=== PATIENT | female | born 1950 | race Caucasian/White ===

== ENCOUNTER 2019-01-08 06:00 | Outpatient (RCR) | payer MEDICARE, OTHER, MEDICAID, SELFPAY | END 2019-02-07 00:01 | LOC: GPT 06:00 | PROVIDERS: Family Provider Family Medicine; Visit Provider Family Medicine | DX: R29.6 Repeated falls (principal) | CPT/HCPCS: 97110; 97164 ==

== ENCOUNTER → 2019-03-14 12:35 | Outpatient (BNVA) | payer MEDICARE, MEDICAID, SELFPAY | PROVIDERS: Family Provider Family Medicine; PCP Family Medicine; Visit Provider Family Medicine | DX: E11.9 Type 2 diabetes mellitus without complications (principal) | CPT/HCPCS: 83036 ==

== ENCOUNTER → 2019-10-02 07:24 | Outpatient (BNVA) | payer MEDICARE, MEDICAID, SELFPAY | PROVIDERS: Family Provider Family Medicine; PCP Family Medicine; Visit Provider Nurse Practitioner Family | DX: R06.02 Shortness of breath (principal); R52 Pain, unspecified | CPT/HCPCS: 87635 ==

== ENCOUNTER → 2019-12-18 12:59 | Outpatient (BNVA) | payer MEDICARE, MEDICAID, SELFPAY | PROVIDERS: Family Provider Family Medicine; PCP Family Medicine; Visit Provider Nurse Practitioner Family | DX: Z11.59 Encounter for screening for other viral diseases (principal); R06.02 Shortness of breath | CPT/HCPCS: 87635 ==

== ENCOUNTER → 2020-01-09 11:17 | Outpatient (BNVA) | payer MEDICARE, MEDICAID, SELFPAY | PROVIDERS: Family Provider Family Medicine; PCP Family Medicine; Visit Provider Family Medicine | DX: M54.9 Dorsalgia, unspecified (principal); E11.9 Type 2 diabetes mellitus without complications; M47.816 Spondylosis without myelopathy or radiculopathy, lumbar region | CPT/HCPCS: 36416; 72070; 72100; 83036 ==

== ENCOUNTER 2020-01-17 06:00 | Outpatient (RCR) | payer MEDICARE, MEDICAID, SELFPAY | END 2020-02-08 23:59 | disposition home or self-care (01) | LOC: GPT 06:00 | PROVIDERS: Family Provider Family Medicine; PCP Family Medicine; Referring Provider Family Medicine; Visit Provider Family Medicine | DX: M54.9 Dorsalgia, unspecified (principal); M47.816 Spondylosis without myelopathy or radiculopathy, lumbar region | CPT/HCPCS: 97032; 97110; 97161; 97530 ==

== ENCOUNTER 2020-02-09 06:00 | Outpatient (RCR) | payer MEDICARE, MEDICAID, SELFPAY | END 2020-03-10 23:59 | disposition home or self-care (01) | LOC: GPT 06:00 | PROVIDERS: Family Provider Family Medicine; PCP Family Medicine; Referring Provider Family Medicine; Visit Provider Family Medicine | DX: M54.9 Dorsalgia, unspecified (principal); M47.816 Spondylosis without myelopathy or radiculopathy, lumbar region | CPT/HCPCS: 97032; 97110; 97116; 97164; 97530 ==

== ENCOUNTER 2020-03-11 06:00 | Outpatient (RCR) | payer MEDICARE, MEDICAID, SELFPAY | END 2020-04-07 23:59 | disposition home or self-care (01) | LOC: GPT 06:00 | PROVIDERS: Family Provider Family Medicine; PCP Family Medicine; Referring Provider Family Medicine; Visit Provider Family Medicine | DX: M54.9 Dorsalgia, unspecified (principal); M47.816 Spondylosis without myelopathy or radiculopathy, lumbar region | CPT/HCPCS: 97032; 97112; 97530 ==

== ENCOUNTER → 2020-05-01 11:35 | Outpatient (BNVA) | payer MEDICARE, MEDICAID, SELFPAY | PROVIDERS: Family Provider Family Medicine; PCP Family Medicine; Visit Provider Family Medicine | DX: E11.9 Type 2 diabetes mellitus without complications (principal); G47.33 Obstructive sleep apnea (adult) (pediatric); M47.816 Spondylosis without myelopathy or radiculopathy, lumbar region | CPT/HCPCS: 83036 ==

== ENCOUNTER → 2020-10-23 11:44 | Outpatient (BNVA) | payer MEDICARE, MEDICAID, SELFPAY | PROVIDERS: Family Provider Family Medicine; PCP Family Medicine; Visit Provider Nurse Practitioner Family | DX: R30.0 Dysuria (principal) | CPT/HCPCS: 81000 ==

== ENCOUNTER → 2020-10-31 13:29 | Outpatient (BNVA) | payer MEDICARE, MEDICAID, SELFPAY | PROVIDERS: Family Provider Family Medicine; PCP Family Medicine; Visit Provider Nurse Practitioner Family | DX: E11.9 Type 2 diabetes mellitus without complications (principal); E78.5 Hyperlipidemia, unspecified; I10 Essential (primary) hypertension | CPT/HCPCS: 83036 ==

== ENCOUNTER → 2020-11-04 11:33 | Outpatient (BNVA) | payer MEDICARE, MEDICAID, SELFPAY | PROVIDERS: Family Provider Family Medicine; PCP Family Medicine; Visit Provider Nurse Practitioner Family | DX: E11.9 Type 2 diabetes mellitus without complications (principal) | CPT/HCPCS: 80053; 80061; 84443 ==

== ENCOUNTER → 2021-01-14 15:01 | Outpatient (BNVA) | payer MEDICARE, MEDICAID, SELFPAY | PROVIDERS: Family Provider Family Medicine; PCP Family Medicine; Visit Provider Nurse Practitioner Family | DX: R30.0 Dysuria (principal) | CPT/HCPCS: 81000 ==

== ENCOUNTER 2021-03-12 10:29 | Emergency (ER) | payer MEDICARE, MEDICAID, SELFPAY ==
[2021-03-12 10:34] VITALS: BP 140/76; PULSE 71; RESP 16; TEMP 36.8; O2SAT 93; BMI 43.0
[2021-03-12 10:42] VITALS: BP 140/76; PULSE 71; RESP 16; TEMP 36.8; O2SAT 93
--- NOTE | 2021-03-12 10:56 | ECG_ITS ---
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 Measurements Intervals [place] Rate: 65 P: 53 VT: 174 QRS: 48 QRSD: 80 T: 42 QT: 420 QTc: 440 Interpretive Statements SINUS RHYTHM No previous ECG available for comparison Electronically Signed On 03-12-2021 18:27:31 ASSOCIATE DIRECTOR by Allan lGover M.D. [id number]
--- NOTE | 2021-03-12 10:56 | XR_ITS ---
WS: [id number] XR ribs LT mn 3V w CXR1V 08040 REASON FOR EXAM: frequent falls/L rib pain FINDINGS: No focal bone lesion or fracture of the left ribs. Underlying coarse reticular interstitial lung disease, chronic. No pleural abnormality. Prominent descending thoracic aorta which may be aneurysmally dilated. XR/XR ribs LT mn 3V w CXR1V 47670 IMPRESSION: No acute rib abnormality. Possible aneurysmal dilatation of the descending thoracic aorta.
--- NOTE | 2021-03-12 10:57 | ED_ITS ---
Documented by User: USAMA Serrano 03/12/21 16:13 HPI - Fall General: Chief Complaint: Fall Stated Complaint: FALL/ POSSIBLE RIB FX Time Seen by Provider: 03/12/21 10:40 Source: patient Mode of arrival: ambulatory Limitations: no limitations History of Present Illness: Patient is a 70-year-old female with a history of asthma, hyperlipidemia, obstructive sleep apnea diabetes, obesity, GERD, atrial fibrillation and HTN here for evaluation following a fall. Patient states she has fallen 6 times in the past 6 days. When asked what causes patient to fall she states most of the time she will trip over things such as her dog but then also tells me sometimes she gets dizzy and feels off balance. She states she fell one time from her shower bench because it was slippery. Patient states once she falls it is difficult for her to get up on her own. Patient is morbidly o bese and deconditioned. She states she fell a few days ago and was seen by PCP. They have referred her to PT for strengthening. Patient today states she feels mildly short of breath and states she is recovering from pneumonia (documentation states she was diagnosed with bronchitis on 02/19 and placed on levaquin). Patient states she is having some mild left rib pain from her fall today. MD complaint: fall Onset (ago): day(s) Fall witnessed: yes, by family Place fall occurred: home Loss of consciousness: None Prolonged down time: no Associated symptoms-after fall: Reports neck pain (chronic neck pain-at baseline); Denies abdominal pain, chest pain, confusion, headache(s), hematuria or lighthe adedness Review of Systems Const: Denies: fever(s), chills, body aches, fatigue or malaise Eyes: Denies: change in vision, blurry vision, photophobia, floaters or seeing flashes ENMT: Denies: throat pain, odynophagia, nasal discharge, nasal congestion or sinus pain Card: Reports: dyspnea on exertion; Denies: chest pain, palpitations, irregular heart rhythm, edema, swelling of feet/ankles, lightheadedness, syncope, pre-syncope, orthopnea or leg pain with exertion Resp: Reports: dyspnea, productive cough, chest congestion and other (states she is recovering from pneumonia); Denies: wheezing or hemoptysis GI: Denies: abdominal pain, nausea, vomiting or diarrhea : Denies: flank pain, dysuria or hematuria Musc: Reports: neck pain (chronic neck pain-at baseline) and back pain (reports chronic back pain-at baseline); Denies: extremity pain, extremity swelling, joint pain, joint swelling, joint redness or joint warmth Skin/Breast: Denies: rash Neuro: Reports: frequent falls; Denies: headache(s), numbness in extremities, weakness in extremities, sensory changes, dizziness, confusion, behavioral changes, Slurred speech present, difficulty communicating thoughts or seizure-like activity PFS ED PFSH: Medical History (Updated 03/12/21 @ 16:00 by USAMA Serrano) Afib Depression GERD (gastroesophageal reflux disease) Hyperlipidemia Hypertension, benign Hypothyroid Obesity Sleep apnea Social History Smoking and tobacco status: never smoked Quit status (tobacco): has quit using tobacco Year quit tobacco: 2001 Alcohol intake: never Physical Exam Const: COMMON NORMALS: no acute distress, patient oriented x3, no limitations and alert GENERAL APPEARANCE: cooperative NUTRITIONAL APPEARANCE: obese morbidly obese and other ORIENTATION/CONSCIOUSNESS: Yes awake, Yes oriented to person, Yes oriented to place and Yes oriented to time HENMT: COMMON NORMALS: normocephalic and atraumatic HEAD & SCALP: normocephalic and atraumatic Neck/C-Spine: COMMON NORMALS: full ROM CERVICAL SPINE: No pain with cervical ROM, No Cervical spine tenderness and No step off deformity Chest: COMMONS NORMALS: normal inspection of the chest and normal palpation of entire chest wall Resp: COMMON NORMALS: normal respiratory effort AUSCULTATION: rhonchi left lower Cardio: COMMON NORMALS: regular rate and regular rhythm RATE: regular rate RHYTHM: regular rhythm GI: COMMON NORMALS: Normal to inspection, nondistended, normoactive bowel sounds present, Soft to palpation and non-tender INSPECTION: Yes central obesity PALPATION: Yes Soft to palpation Back/Pelvis: COMMON NORMALS: thoracic and lumbar spine normal to inspection, no thoracic nor lumbar tenderness and thoraco-lumbar ROM normal BACK IMAGE (FEMALE): 1. mild ecchymosis from previous fall per patient Extremity: COMMON NORMALS: normal to inspection and full ROM GENERAL: Yes normal exam except as noted Neuro: PARKER COMA SCALE: document GCS findings Parker coma scale eye opening: Spontaneous [place] coma scale verbal response: Orientated [place] coma scale motor response: Obey commands Parker coma scale total score: 15 COMMON NORMALS: patient oriented x3, CN's II-XII intact bilaterally, moves all extremities, no focal motor deficits and no sensory deficits noted SENSORIUM/ORIENTATION: Yes alert, Yes oriented to person, Yes oriented to place and Yes oriented to time Skin: NARRATIVE SKIN EXAM: area of ecchymosis to R lower back; otherwise normal skin exam Course Vital Signs: Vital signs: Vital Signs Temperature 98.2 F 03/12/21 10:42 Pulse Rate 71 03/12/21 16:14 Respiratory Rate 18 03/12/21 16:14 Blood Pressure 145/88 03/12/21 16:14 Pulse Oximetry 94 03/12/21 16:14 MDM - Fall Medical Decision Making Patient is a 70-year-old female here for complaints of falls over the past several days. Patient at first tells me that most of her falls are secondary to tripping over things such as her dog. She had one fall where she slipped off of her bench in her shower. She does at some point tell me she feels like she gets a little dizzy and off balance at times therefore work-up initiated. She had some mild left rib discomfort on her history although she was not overly tender here on exam. Her CXR showed a possible thoracic aortic aneurysm therefore went ahead and proceeded with CT imaging which was essentially negative. She did have a possible acute to subacute T12 compression fracture-she is not tender here on exam. Remainder of CT is negative. Vital signs are stable. Upon initial arrival she did require a small amount of oxygen secondary to morphine given by EMS but was tapered off this and did well. Patient's labs overall are unremarkable. She does have a mildly elevated baseline troponin with a negative delta. Her EKG showed no ischemic changes. She does not have any complaint of chest pain. UA is slightly suspicious for UTI. We will go ahead and place her on Keflex for this. Recommend close follow-up with her primary care. I think a lot of her falls are secondary to body habitus and generalized deconditioning. She does states she has been referred to PT for strengthening/balance which I think will help. Return to ED precautions given. Lab Data I reviewed the patient's lab results. : 03/12/21 13:23 02/02/22 13:23 Radiology Impressions Ribs X-Ray 03/12/21 10:56 IMPRESSION: No acute rib abnormality. Possible aneurysmal dilatation of the descending thoracic aorta. Chest/Abdomen/Pelvis CT 03/12/21 12:20 IMPRESSION: 1. Normal caliber thoracic aorta. No thoracic aortic aneurysm. Mild vascular calcification. 2. Both lungs are well aerated. No acute pulmonary infiltrates. 3. Mild compression superior endplate T12 may be acute to subacute. No retropulsion. Recommend correlation for thoracolumbar pain. 4. Incidental left renal cysts. 5. No other acute traumatic findings in the abdomen or pelvis. Laboratory Results WBC 8.1 10^3/uL (4.0-10.0) 03/12/21 13:23 RBC 3.58 10^6/uL (4.1-5.3) L 03/12/21 13:23 Hgb 10.5 g/dL (11.5-15.3) L 03/12/21 13:23 Hct 34.6 % (37.0-47.0) L 03/12/21 13:23 MCV 96.6 fl (81-99) 03/12/21 13:23 MCH 29.3 pg (28.0-34.0) 03/12/21 13:23 MCHC 30.3 g/dL (30.0-36.0) 03/12/21 13:23 RDW 14.7 % (12.1-15.1) 03/12/21 13:23 Plt Count 223 10^3/cmm (130-400) 03/12/21 13:23 MPV 10.1 fL (7.4-10.4) 03/12/21 13:23 Neut % (Auto) 72.9 % 03/12/21 13:23 Lymph % (Auto) 14.3 % 03/12/21 13:23 [place] % (Auto) 6.0 % 03/12/21 13:23 Eos % (Auto) 6.2 % 03/12/21 13:23 Baso % (Auto) 0.4 % 03/12/21 13:23 Neut # (Auto) 5.92 10^3/uL (1.8-7.7) 03/12/21 13:23 Lymph # (Auto) 1.2 10^3/uL (0.8-4.8) 03/12/21 13:23 [place] # (Auto) 0.5 10^3/uL (0.2-0.9) 03/12/21 13:23 Eos # (Auto) 0.5 10^3/uL (0.0-0.8) 03/12/21 13:23 Baso # (Auto) 0.0 10^3/uL (0.0-0.1) 03/12/21 13:23 Nucleated RBC % (auto) 0 % 03/12/21 13:23 Nucleated RBCs # 0.0 /100WBC 03/12/21 13:23 Sodium 140 mmol/L (136-145) 03/12/21 13:23 Potassium 4.5 mmol/L (3.5-5.1) 03/12/21 13:23 Chloride 105 mmol/L (98-107) 03/12/21 13:23 Carbon Dioxide 25 mmol/L (22-29) 03/12/21 13:23 Anion Gap 14.5 (5-19) 03/12/21 13:23 BUN 17 mg/dL (8-23) 03/12/21 13:23 Creatinine 0.6 mg/dL (0.5-0.9) 03/12/21 13:23 GFR Calculation Not Reportable 03/12/21 13:23 Glucose 129 mg/dL (65-115) H 03/12/21 13:23 Calculated Osmolality 293 mOsm/kg (285-295) 03/12/21 13:23 Calcium 8.9 mg/dL (8.5-10.5) 03/12/21 13:23 Total Bilirubin 0.2 mg/dL (0.15-1.2) 03/12/21 13:23 AST 11 U/L (0-32) 03/12/21 13:23 ALT 10 U/L (0-33) 03/12/21 13:23 Alkaline Phosphatase 70 IU/L (35-105) 03/12/21 13:23 Creatine Kinase 39 U/L (26-192) 03/12/21 13:23 Troponin T Baseline 46 ng/L (0-10) H 03/12/21 13:23 Troponin T 120 Minute 49.46 ng/L (0-10) H 03/12/21 15:07 Delta Troponin T 3.46 ABS# (0-10) 03/12/21 15:07 Total Protein 6.7 g/dL (6.6-8.7) 03/12/21 13:23 Albumin 3.4 g/dL (3.5-5.2) L 03/12/21 13:23 Globulin 3.3 g/dL (1.3-4.6) 03/12/21 13:23 Urine Color Yellow (Yellow) 03/12/21 11:56 Urine Appearance Clear (CLEAR) 03/12/21 11:56 Urine pH 5 (5-7) 03/12/21 11:56 Ur Specific [place] 1.020 (1.005-1.030) 03/12/21 11:56 Urine Protein Neg (Negative) 03/12/21 11:56 Urine Glucose (UA) Norm (Normal) 03/12/21 11:56 Urine Ketones Negative (Negative) 03/12/21 11:56 Urine Blood 2+ (Negative) H 03/12/21 11:56 Urine Nitrate Negative (Negative) 03/12/21 11:56 Urine Bilirubin Neg (Negative) 03/12/21 11:56 Urine Urobilinogen Neg mg/dL (Negative) 03/12/21 11:56 Ur Leukocyte Esterase 1+ (Negative) H 03/12/21 11:56 Urine RBC 0-4 /hpf (0-2) H 03/12/21 11:56 Urine WBC 0-4 /hpf (0-5) H 03/12/21 11:56 Ur Squamous Epith Cells 5-10 /hpf (0-5) H 03/12/21 11:56 Ur Transition Epith Cell 0-4 /hpf 03/12/21 11:56 Amorphous Sediment 2+ /hpf 03/12/21 11:56 Urine Bacteria 2+ /hpf (NONE) H 03/12/21 11:56 Urine Mucus 1+ /hpf 03/12/21 11:56 Discharge Plan Discharge Patient Disposition: Home Clinical Impression: Frequent falls UTI (urinary tract infection) Qualifiers: Urinary tract infection type: acute cystitis Hematuria presence: without hematuria Qualified Code(s): N30.00 - Acute cystitis without hematuria Condition: Stable Prescriptions: New cephalexin 500 mg capsule 500 mg PO Q6H 7 Days Qty: 28 0RF No Action albuterol sulfate [Ventolin HFA] 90 mcg/actuation HFA aerosol inhaler 2 puff INHALATION Q6H PRN0RF fluticasone propionate [Flonase Allergy Relief] 50 mcg/actuation spray,suspension 2 spray INTRANASAL DAILY 0RF omega-3 fatty acids 1,000 mg capsule 1,000 mg PO DAILY 0RF naproxen sodium [Aleve] 220 mg capsule 220 mg PO BID PRN0RF All Day Allergy (cetirizine) 10 mg capsule 10 mg PO DAILY 0RF nystatin-triamcinolone 100,000-0.1 unit/gram-% ointment 1 applic topical TID Qty: 60 1RF Symbicort 160-4.5 mcg/actuation HFA aerosol inhaler 2 puff INHALATION BID Qty: 10.2 4RF nystatin 100,000 unit/gram powder 1 applic topical QID Qty: 60 4RF fluconazole 150 mg tablet 150 mg PO Q3D Qty: 2 0RF Basaglar KwikPen U-100 Insulin 100 unit/mL (3 mL) insulin pen 20 unit SUBCUT .AT BEDTIME 30 Days Qty: 18 5RF pioglitazone [Actos] 45 mg tablet 45 mg PO DAILY Qty: 90 1RF losartan 25 mg tablet 25 mg PO DAILY Qty: 90 3RF escitalopram oxalate 20 mg tablet 20 mg PO DAILY Qty: 90 3RF atorvastatin 20 mg tablet 20 mg PO DAILY Qty: 90 1RF metoprolol tartrate 50 mg tablet 50 mg PO BID Qty: 180 3RF hydralazine 10 mg tablet See Rx Instructions .ROUTE .COMPLEX Qty: 180 3RF Dose Instruction: TAKE ONE TABLET BY MOUTH TWICE A DAY Rx Instructions: TAKE ONE TABLET BY MOUTH TWICE A DAY pantoprazole 40 mg tablet,delayed release (DR/EC) See Rx Instructions .ROUTE .COMPLEX Qty: 180 3RF Dose Instruction: TAKE ONE TABLET BY MOUTH TWICE A DAY Rx Instructions: TAKE ONE TABLET BY MOUTH TWICE A DAY (DME) pen needle, diabetic [1st Tier Unifine Pentips] 32 gauge x 5/32 needle See Rx Instructions .ROUTE .MEDSUPPLY Qty: 300 3RF Rx Instructions: As directed three times a day Discharge Orders: Discharge ED (Routine); Ordered 03/12/21 Ordered By: Patria Castañeda Referrals: Nacho Stovall DO [Primary Care Provider] - Coding Level of Care Code ED 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 mild ecchymosis from previous fall per patient Neuro: PARKER COMA SCALE: document GCS findings [place] coma scale total score: 15 Course Vital Signs: Vital signs: Vital Signs Temperature 98.2 F 03/12/21 10:42 Pulse Rate 71 03/12/21 16:14 Respiratory Rate 18 03/12/21 16:14 Blood Pressure 145/88 03/12/21 16:14 Pulse Oximetry 94 03/12/21 16:14 MDM - Fall Medical Decision Making Patient is a 70-year-old female here for complaints of falls over the past several days. Patient at first tells me that most of her falls are secondary to tripping over things such as her dog. She had one fall where she slipped off of her bench in her shower. She does at some point tell me she feels like she gets a little dizzy and off balance at times therefore work-up initiated. She had some mild left rib discomfort on her history although she was not overly tender here on exam. Her CXR showed a possible thoracic aortic aneurysm therefore went ahead and proceeded with CT imaging which was essentially negative. She did have a possible acute to subacute T12 compression fracture-she is not tender here on exam. Remainder of CT is negative. Vital signs are stable. Upon initial arrival she did require a small amount of oxygen secondary to morphine given by EMS but was tapered off this and did well. Patient's labs overall are unremarkable. She does have a mildly elevated baseline troponin with a negative delta. Her EKG showed no ischemic changes. She does not have any complaint of chest pain. UA is slightly suspicious for UTI. We will go ahead and place her on Keflex for this. Recommend close follow-up with her primary care. I think a lot of her falls are secondary to body habitus and generalized deconditioning. She does states she has been referred to PT for strengthening/balance which I think will help. Return to ED precautions given. I have reviewed this documentation by USAMA Serrano MD Emergency Medicine Lab Data : 03/12/21 13:23 03/12/21 13:23 Radiology Impressions Ribs X-Ray 03/12/21 10:56 IMPRESSION: No acute rib abnormality. Possible aneurysmal dilatation of the descending thoracic aorta. Chest/Abdomen/Pelvis CT 03/12/21 12:20
--- NOTE | 2021-03-12 12:20 | CT_ITS ---
WS: [id number] CT CHEST, ABDOMEN, AND PELVIS TECHNIQUE: Contrast-enhanced CT of the chest, abdomen, and pelvis with coronal and sagittal reformatt ed images. CLINICAL INFORMATION: abn CXR; thoracic aneurysm?; fall; R posterior ecchymosis COMPARISON: None. DLP: 1958.[address] scans at [facility] use at least one of these dose optimization techniques: automated e xposure control; mA and/or kV adjustment per patient size (includes targeted exams where dose is matc hed to clinical indication); or iterative reconstruction. CT CHEST: Normal caliber thoracic aorta. Aortic calcification. Normal caliber descending thoracic aorta. Proxim al main pulmonary arteries are normal. Mild aortic calcification. Coronary calcification. No mediasti nal or hilar lymphadenopathy. No axillary lymphadenopathy. Slight atelectasis in the lung bases. Lung s are well aerated. No acute pulmonary infiltrates. Mild compression superior endplate T12 age-indete rminate may be acute to subacute. Recommend correlation for low back pain. No retropulsion. CT ABDOMEN AND PELVIS: Normal liver. Normal portal vein and splenic vein. Gallbladder appears normal. Normal portal vein and splenic vein. Mild fatty atrophy of the pancreas. Normal spleen. Adrenal glands are normal. Normal r enal parenchymal enhancement. No hydronephrosis. Left renal cysts. Normal caliber abdominal aorta. Ao rtic calcification. No periaortic lymphadenopathy. Urine distended bladder. Normal sigmoid colon. Small Fat-containing umbilical hernia. CT/CT chest abd pel w con* IMPRESSION: 1. Normal caliber thoracic aorta. No thoracic aortic aneurysm. Mild vascular c alcification. 2. Both lungs are well aerated. No acute pulmonary infiltrates. 3. Mild compression superior endplate T12 may be acute to subacute. No retropu lsion. Recommend correlation for thoracolumbar pain. 4. Incidental left renal cysts. 5. No other acute traumatic findings in the abdomen or pelvis.
[2021-03-12 12:27] LABS: Add Urine Microscopic? YES; Bilirubin Urine Neg (Negative); Blood Urine 2+ (Negative); Glucose Urine UA Norm (Normal); Ketones Urine Negative (Negative); Leukocyte Esterase Urine 1+ (Negative); Nitrate Urine Negative (Negative); Protein Urine Neg (Negative); Urine Appearance Clear (CLEAR); Urine Color Yellow (Yellow); Urobilinogen Urine Neg (Negative); pH Urine 5 (5-7)
[2021-03-12 12:29] LABS: RBC Urine 0-4 /hpf (0-2); WBC Urine 0-4 /hpf (0-5)
[2021-03-12 12:30] LABS: Add Urine Culture? Yes; Amorphous Sediment Urine 2+ /hpf; Bacteria Urine 2+ /hpf; Mucus Urine 1+ /hpf; Transitional Epi Cells Urine 0-4 /hpf
[2021-03-12 13:14] VITALS: BP 135/77; PULSE 73; RESP 16; O2SAT 98
[2021-03-12 13:28] LABS: Basophils % 0.4 %; Eosinophils # 0.5 10^3/uL (0.0-0.8); Eosinophils % 6.2 %; Hematocrit 34.6 % (37.0-47.0); Hemoglobin 10.5 g/dL (11.5-15.3); Lymphocytes # 1.2 10^3/uL (0.8-4.8); Lymphocytes % 14.3 %; Mean Corpuscular HGB Conc 30.3 g/dL (30.0-36.0); Mean Corpuscular Hemoglobin 29.3 pg (28.0-34.0); Mean Corpuscular Volume 96.6 fl (81-99); Mean Platelet Volume 10.1 fL (7.4-10.4); Monocytes # 0.5 10^3/uL (0.2-0.9); Neutrophils # 5.92 10^3/uL (1.8-7.7); Neutrophils % 72.9 %; Nucleated Red Blood Cells % 0 %; Platelet Count 223 10^3/cmm (130-400); Red Blood Count 3.58 10^6/uL (4.1-5.3); Red Cell Distribution Width 14.7 % (12.1-15.1); White Blood Count 8.1 10^3/uL (4.0-10.0)
[2021-03-12 13:51] LABS: Troponin(5th) Baseline 46 ng/L (0-10)
[2021-03-12 13:53] LABS: Alanine Aminotransferase 10 U/L (0-33); Albumin Level 3.4 g/dL (3.5-5.2); Alkaline Phosphatase 70 IU/L (35-105); Anion Gap 14.5 (5-19); Aspartate Amino Transferase 11 U/L (0-32); Blood Urea Nitrogen 17 mg/dL (8-23); Calcium 8.9 mg/dL (8.5-10.5); Carbon Dioxide 25 mmol/L (22-29); Chloride 105 mmol/L (98-107); Creatine Phosphokinase 39 U/L (26-192); Globulin 3.3 g/dL (1.3-4.6); Glucose 129 mg/dL (65-115); Osmolality Calculated 293 mOsm/kg (285-295); Potassium 4.5 mmol/L (3.5-5.1); Sodium 140 mmol/L (136-145); Total Bilirubin 0.2 mg/dL (0.15-1.2); Total Protein 6.7 g/dL (6.6-8.7)
[2021-03-12] MEDS: iohexol 300 mg/mL 100 mL Btl IV (14:23)
[2021-03-12 15:15] VITALS: BP 144/81; PULSE 67; RESP 20; O2SAT 93
[2021-03-12 15:45] LABS: Troponin 5 2HR 49.46 ng/L (0-10)
[2021-03-12 15:46] LABS: Troponin 5 2HR Delta 3.46 ABS# (0-10)
[2021-03-12 16:14] VITALS: BP 145/88; PULSE 71; RESP 18; O2SAT 94
== END 2021-03-12 16:12 | disposition home or self-care (01) ==
PROVIDERS: Emergency Provider Physician Assistant; PCP Family Medicine
DX: R29.6 Repeated falls (principal); N30.00 Acute cystitis without hematuria; E78.5 Hyperlipidemia, unspecified; I10 Essential (primary) hypertension; Z87.891 Personal history of nicotine dependence
CPT/HCPCS: 36415; 71101; 71260; 74177; 80053; 81001; 82550; 84484; 85025; 87077; 87086; 87186; 93005; 99284; Q9967

== ENCOUNTER 2021-04-07 16:08 | Outpatient (RCR) | payer MEDICARE, MEDICAID, SELFPAY | END 2021-04-07 23:59 | disposition home or self-care (01) | LOC: GPT 16:08 | PROVIDERS: PCP Family Medicine; Referring Provider Nurse Practitioner Family; Visit Provider Nurse Practitioner Family | DX: M54.2 Cervicalgia (principal); G89.29 Other chronic pain; M25.511 Pain in right shoulder; M25.512 Pain in left shoulder; M25.619 Stiffness of unspecified shoulder, not elsewhere classified | CPT/HCPCS: 97110; 97162 ==

== ENCOUNTER 2021-04-08 06:00 | Outpatient (RCR) | payer MEDICARE, MEDICAID, SELFPAY | END 2021-04-29 13:08 | disposition home or self-care (01) | LOC: GPT 06:00 | PROVIDERS: PCP Family Medicine; Referring Provider Nurse Practitioner Family; Visit Provider Nurse Practitioner Family | DX: G89.29 Other chronic pain (principal); M54.2 Cervicalgia; M25.511 Pain in right shoulder; M25.512 Pain in left shoulder | CPT/HCPCS: 97110; 97140; 97530 ==

== ENCOUNTER → 2021-04-21 14:25 | Outpatient (BNVA) | payer MEDICARE, MEDICAID, SELFPAY | PROVIDERS: PCP Family Medicine; Visit Provider Nurse Practitioner Family | DX: E11.9 Type 2 diabetes mellitus without complications (principal); E78.5 Hyperlipidemia, unspecified; Z68.41 Body mass index [BMI] 40.0-44.9, adult | CPT/HCPCS: 80053; 80061; 83036 ==

== ENCOUNTER → 2021-06-02 13:15 | Outpatient (BNVA) | payer MEDICARE, MEDICAID, SELFPAY | PROVIDERS: PCP Family Medicine; Visit Provider Internal Medicine Cardiovascular Disease | DX: R55 Syncope and collapse (principal); W19.XXXA Unspecified fall, initial encounter; E78.5 Hyperlipidemia, unspecified; M54.2 Cervicalgia; G89.29 Other chronic pain; E11.9 Type 2 diabetes mellitus without complications; R00.1 Bradycardia, unspecified; R00.0 Tachycardia, unspecified; Z79.4 Long term (current) use of insulin | CPT/HCPCS: 93270; 99213 ==

== ENCOUNTER → 2021-06-13 14:29 | Outpatient (BNVA) | payer MEDICARE, MEDICAID, SELFPAY | PROVIDERS: PCP Family Medicine; Visit Provider Nurse Practitioner Family | DX: N39.0 Urinary tract infection, site not specified (principal); R31.9 Hematuria, unspecified | CPT/HCPCS: 81003; 87077; 87086; 87184 ==

== ENCOUNTER → 2021-07-15 11:10 | Outpatient (BNVA) | payer MEDICARE, MEDICAID, SELFPAY | PROVIDERS: PCP Family Medicine; Visit Provider Internal Medicine Cardiovascular Disease | DX: I10 Essential (primary) hypertension (principal); W19.XXXA Unspecified fall, initial encounter; E78.5 Hyperlipidemia, unspecified; E66.9 Obesity, unspecified; Z68.41 Body mass index [BMI] 40.0-44.9, adult; E11.9 Type 2 diabetes mellitus without complications; K21.9 Gastro-esophageal reflux disease without esophagitis; M54.2 Cervicalgia; G89.29 Other chronic pain; Z87.891 Personal history of nicotine dependence; Z79.4 Long term (current) use of insulin | CPT/HCPCS: 99214 ==

== ENCOUNTER → 2021-07-23 11:52 | Outpatient (BNVA) | payer MEDICARE, MEDICAID, SELFPAY | PROVIDERS: PCP Family Medicine; Visit Provider Nurse Practitioner Family | DX: E11.9 Type 2 diabetes mellitus without complications (principal); R30.0 Dysuria | CPT/HCPCS: 81000; 83036 ==

== ENCOUNTER → 2021-10-08 13:13 | Outpatient (BNVA) | payer MEDICARE, MEDICAID, SELFPAY | PROVIDERS: PCP Family Medicine; Visit Provider Family Medicine | DX: R30.0 Dysuria (principal); N39.0 Urinary tract infection, site not specified; R31.9 Hematuria, unspecified | CPT/HCPCS: 81000; 81003; 87077; 87086; 87184 ==

== ENCOUNTER → 2021-12-30 10:59 | Outpatient (BNVA) | payer MEDICARE, MEDICAID, SELFPAY | PROVIDERS: PCP Family Medicine; Visit Provider Nurse Practitioner Family | DX: R30.0 Dysuria (principal) | CPT/HCPCS: 81000 ==

== ENCOUNTER → 2022-01-27 15:25 | Outpatient (BNVA) | payer MEDICARE, MEDICAID, SELFPAY | PROVIDERS: PCP Family Medicine; Visit Provider Nurse Practitioner Family | DX: R30.9 Painful micturition, unspecified (principal) | CPT/HCPCS: 81000 ==

== ENCOUNTER 2022-02-17 12:07 | Observation (INO) | payer MEDICARE, MEDICAID, SELFPAY ==
[2022-02-17] VITALS (7 sets, daily range): BP systolic 130–178; BP diastolic 62–96; PULSE 57–66; RESP 14–17; TEMP 36.4–36.7; O2SAT 93–94; BMI 41.0
--- NOTE | 2022-02-17 12:32 | CT_ITS ---
WS: [id number] CT HEAD TECHNIQUE: Noncontrast CT of the head obtained from the skullbase to the vertex. CLINICAL INFORMATION: Symptoms of acute stroke COMPARISON: None. DLP: [address] scans [address] [facility] use at least one of these dose optimization techniques: automated e xposure control; mA and/or kV adjustment per patient size (includes targeted exams where dose is matc hed to clinical indication); or iterative reconstruction. FINDINGS: No evidence of intracranial hemorrhage or mass effect. Ventricular system and basal cisterns are golden nt. Moderate small vessel changes with moderate parenchymal volume loss. Intracranial vascular calcif ication. A few tiny chronic lacunar infarcts in the basal ganglia. No extra-axial fluid collections. No evidence of mass or mass effect. Paranasal sinuses and mastoid air cells are well aerated. Trace fluid in the sphenoid sinus. .Normal visualized soft tissues. CT/CT head thrombolytic 48623 IMPRESSION: 1. No evidence of intracranial hemorrhage or mass effect. 2. Moderate small vessel changes. Moderate parenchymal volume loss. 3. Trace fluid in the sphenoid sinus. 4. No acute intracranial findings. Notified Rafael Vásquez DO at 02/17/2022 1:10PM.
--- NOTE | 2022-02-17 12:33 | ED_ITS ---
HPI - Neuro Symptoms/Deficit General: Chief Complaint: Neuro Symptoms/Deficit Stated Complaint: Slurred Speech Time Seen by Provider: 02/17/22 12:15 Source: patient Mode of arrival: ambulatory Limitations: no limitations History of Present Illness: I think I may have had a stroke . The patient states that she noted Wednesday morning when she awoke she seemed to be speaking a little differently than normal. She states she could not make the words come out as clearly as they normally do. She states that she was normal Wednesday night before she went to bed. She states that no one really commented on her speech pattern at home. She lives with her but states that he had company over and he was not really paying attention to her. She states that when she called her primary care office this morning they thought that her speech was somewhat abnormal and directed her to the emergency department. He states she is not any focal weakness, numbness, falls, fevers or other symptoms. She is states that she does not have sore throat, difficulty swallowing etc. She states that she has been taking all her medications as prescribed. She does have a history of hypertension as well as diabetes. On Anticoagulants: No Associated symptoms: Deny chest pain, headache(s), nausea or vomiting Review of Systems Const: Denies: fever(s) or chills Eyes: Denies: change in vision ENMT: Denies: throat pain, odynophagia, hoarseness, nasal discharge or nasal congestion Card: Denies: chest pain or palpitations Resp: Denies: dyspnea, productive cough or non-productive cough GI: Denies: abdominal pain, nausea or vomiting : Denies: flank pain, difficulty voiding, dysuria or urinary frequency Musc: Denies: neck pain, back pain, extremity pain or extremity swelling Skin/Breast: Denies: rash Neuro: Reports: Slurred speech present; Denies: headache(s), numbness in extremities, weakness in extremities, sensory changes, lack of coordination, difficulty walking or seizure-like activity Psych: Denies: anxiety Endo: Denies: polyuria or polydipsia Royce/Lymph: Denies: easy bruising PFS ED PFSH: Medical History Afib Blackout spell Depression GERD (gastroesophageal reflux disease) Hyperlipidemia Hypertension, benign Hypothyroid Obesity Sleep apnea Social History Smoking and tobacco status: never smoked Quit status (tobacco): has quit using tobacco Year quit tobacco: 2001 Alcohol intake: never NIH stroke score NIHSS: Level Of Consciousness - 1a: 0 Level Of Consciousness Questions - 1b: Both Correct Level Of Consciousness Commands - 1c: Both Correct Best Gaze - 2: Normal Visual Barr - 3: No Visual Loss Facial Palsy - 4: Normal Motor Arm Right - 5: No Drift Motor Arm Left - 5: No Drift Motor Leg Right - 6: No Drift Motor Leg Left - 6: No Drift Limb Ataxia - 7: Absent Sensory - 8: Normal Best Language - 9: No Aphasia Dysarthia - 10: Mild/Moderate Dysarthia Extinction And Inattention - 11: 0 Score: Total Score: 1 Physical Exam Narrative: EXAM NARRATIVE: The patient makes good eye contact. Speech is goal-directed she does display some mild dysarthria but she is easily understood. Const: COMMON NORMALS: no acute distress and patient oriented x3 GENERAL APPEARANCE: cooperative and comfortable NUTRITIONAL APPEARANCE: overweight ORIENTATION/CONSCIOUSNESS: Yes awake HENMT: COMMON NORMALS: normocephalic, atraumatic, Normal nasal mucous membranes and turbinates present and moist oral mucous membranes HEAD & SCALP: normocephalic and atraumatic FACE & SINUS: normal facial exam and face symmetric NOSE: Normal nasal mucous membranes and turbinates present TEETH & GINGIVA: Yes edentulous Eye: COMMON NORMALS: Equal, round and reactive pupils present, conjunctivae normal and normal visual barr by confrontation CONJUNCTIVA: Yes conjunctivae normal PUPIL: Yes Equal, round and reactive pupils present Neck/C-Spine: COMMON NORMALS: full ROM, no JVD and No carotid bruits Chest: COMMONS NORMALS: normal inspection of the chest Resp: COMMON NORMALS: normal respiratory effort, No use of accessory muscles and clear to auscultation bilaterally AUSCULTATION: clear to auscultation bilaterally Cardio: COMMON NORMALS: no JVD, regular rate, regular rhythm, No murmurs present (Cardio) and Peripheral pulses 2+ throughout RATE: regular rate RHYTHM: regular rhythm PERIPHERAL PULSES: Peripheral pulses 2+ throughout GI: COMMON NORMALS: Normal to inspection, nondistended, normoactive bowel sounds present, Soft to palpation and non-tender PALPATION: Yes Soft to palpation : COMMON NORMALS: Yes no CVA tenderness BLADDER/KIDNEY EXAM: Yes no CVA tenderness Back/Pelvis: COMMON NORMALS: no CVA tenderness, thoraco-lumbar ROM normal and straight leg raise negative bilaterally Extremity: COMMON NORMALS: normal to inspection, full ROM, capillary refill normal, no calf tenderness and no pedal edema Neuro: COMMON NORMALS: patient oriented x3, moves all extremities, no focal motor deficits and no sensory deficits noted CRANIAL NERVES: Yes CN normal except as noted COORDINATION/BALANCE: [id number] test normal and pswb-np-wwbf test normal SPEECH: speech normal MOTOR EXAM: 5/5 motor strength present throughout COORDINATION: [id number]-tx-[id number] test normal and wind-et-wjgb test normal Psych: COMMON NORMALS: mental status grossly normal and cooperative Skin: COMMON NORMALS: no rashes or lesions noted and turgor normal GENERAL SKIN EXAM: no rashes or lesions noted and turgor normal Course Reevaluation(s): Reevaluation #1: The patient is remained stable throughout her emergency department stay with no new or focal findings. Vital signs remained stable and her imaging studies and other ancillary studies are normal. She has not displayed any evidence of atrial fibrillation throughout her emergency department stay. Time: 17:34 Consultations: Consultation #1: Discussed with hospitalist regarding observation to complete stroke evaluation work-up. She agreed to place in observation so that we can get additional studies prior to discharge. Time: 17:35 Vital Signs: Vital signs: Vital Signs Temperature 98.1 F 02/17/22 12:15 Pulse Rate 58 L 02/17/22 15:11 Respiratory Rate 14 02/17/22 15:11 Blood Pressure 174/96 02/17/22 15:11 Pulse Oximetry 93 02/17/22 15:11 Oxygen Delivery Me thod 02/17/22 15:11 MDM - Neuro Symptoms/Deficit Medical Decision Making Patient who presented to the emergency department after being referred from primary care office. She apparently woke with subjective dysarthria symptoms on Wednesday morning. She states that she was symptom free the night before. She eventually made her way to her primary care office who referred her to the emergency department. Work-up in her emergency department evaluation revealed clinical findings only suggestive of dysarthria without anyone to collaborate the level of extent of her speech impediment. No other focal findings on neurologic evaluation. Imaging studies were unrevealing for any evidence of hemorrhage or note findings of significant CT changes suggestive of subacute stroke. She apparently has a history of atrial fibrillation and for time in the past was on anticoagulants but has not been on those for some time. Ultimately would like to complete the remainder of her stroke work-up to include echocardiogram, monitoring, carotid artery studies. There is some serious concerns about those being completed as an outpatient given the paucity of her primary care follow-up so therefore she is being placed in observation so we can complete the studies. Even her history of frequent falls aspirin may be her best bet for stroke prevention in addition to probably placing her on a statin.At no time was she a candidate for thrombolytic therapy etc. Her exclusions were time of onset as well as minimal deficits. Medical Records I reviewed the patient's medical records. Lab Data I reviewed the patient's lab results. 02/17/22 12:21 02/17/22 12:[address] 02/17/22 12:32 IMPRESSION: 1. No evidence of intracranial hemorrhage or mass effect. 2. Moderate small vessel changes. Moderate parenchymal volume loss. 3. Trace fluid in the sphenoid sinus. 4. No acute intracranial findings. Notified Rafael Vásquez DO at 02/17/2022 1:10PM. Laboratory Results WBC 8.7 10^3/uL (4.0-10.0) 02/17/22 12: RBC 4.00 10^6/uL (4.1-5.3) L 02/17/22 12:21 Hgb 12.1 g/dL (11.5-15.3) 02/17/22 12: Hct 38.6 % (37.0-47.0) 02/17/22 12: MCV 96.5 fl (81-99) 02/17/22 12: MCH 30.3 pg (28.0-34.0) 02/17/22 12: MCHC 31.3 g/dL (30.0-36.0) 02/17/22 12: RDW 14.1 % (12.1-15.1) 02/17/22 12:21 Plt Count 250 10^3/cmm (130-400) 02/17/22 12: MPV 10.8 fL (7.4-10.4) H 02/17/22 12:21 Neut % (Auto) 72.0 % 02/17/22 12:21 Lymph % (Auto) 16.1 % 02/17/22 12:21 [place] % (Auto) 6.7 % 02/17/22 12:21 Eos % (Auto) 4.6 % 02/17/22 12:21 Baso % (Auto) 0.3 % 02/17/22 12:21 Neut # (Auto) 6.25 10^3/uL (1.8-7.7) 02/17/22 12:21 Lymph # (Auto) 1.4 10^3/uL (0.8-4.8) 02/17/22 12:21 [place] # (Auto) 0.6 10^3/uL (0.2-0.9) 02/17/22 12:21 Eos # (Auto) 0.4 10^3/uL (0.0-0.8) 02/17/22 12:21 Baso # (Auto) 0.0 10^3/uL (0.0-0.1) 02/17/22 12:21 Nucleated RBC % (auto) 0 % 02/17/22 12: Nucleated RBCs # 0.0 /100WBC 02/17/22 12: PT 13.70 SECONDS (12.1-14.9) 02/17/22 12:21 INR 1.02 (0.8-1.2) 02/17/22 12:21 Sodium 135 mmol/L (136-145) L 02/17/22 12:21 Potassium 4.9 mmol/L (3.5-5.1) 02/17/22 12:21 Chloride 99 mmol/L (98-107) 02/17/22 12:21 Carbon Dioxide 24 mmol/L (22-29) 02/17/22 12:21 Anion Gap 16.9 (5-19) 02/17/22 12:21 BUN 17 mg/dL (8-23) 02/17/22 12:21 Creatinine 0.7 mg/dL (0.5-0.9) 02/17/22 12:21 GFR Calculation Not Reportable 02/17/22 12:21 Glucose 189 mg/dL (65-115) H 02/17/22 12:21 Calculated Osmolality 287 mOsm/kg (285-295) 02/17/22 12:21 Calcium 8.9 mg/dL (8.5-10.5) 02/17/22 12:21 Total Bilirubin 0.4 mg/dL (0.15-1.2) 02/17/22 12:21 AST 10 U/L (0-32) 02/17/22 12:21 ALT 9 U/L (0-33) 02/17/22 12:21 Alkaline Phosphatase 107 U/L (35-105) H 02/17/22 12:21 Total Protein 7.4 g/dL (6.6-8.7) 02/17/22 12:21 Albumin 3.9 g/dL (3.5-5.2) 02/17/22 12:21 Globulin 3.5 g/dL (1.3-4.6) 02/17/22 12:21 Urine Color Yellow (Yellow) 02/17/22 14:47 Urine Appearance Clear (CLEAR) 02/17/22 14:47 Urine pH 5 (5-7) 02/17/22 14:47 Ur Specific [place] 1.015 (1.005-1.030) 02/17/22 14:47 Urine Protein Neg (Negative) 02/17/22 14:47 Urine Glucose (UA) Norm (Normal) 02/17/22 14:47 Urine Ketones Negative (Negative) 02/17/22 14:47 Urine Blood Neg (Negative) 02/17/22 14:47 Urine Nitrate Negative (Negative) 02/17/22 14:47 Urine Bilirubin Neg (Negative) 02/17/22 14:47 Urine Urobilinogen Norm mg/dL (Negative) 02/17/22 14:47 Ur Leukocyte Esterase 2+ (Negative) H 02/17/22 14:47 Urine RBC 0-4 /hpf (0-2) H 02/17/22 14:47 Urine WBC 5-10 /hpf (0-5) H 02/17/22 14:47 Ur Squamous Epith Cells 0-4 /hpf (0-5) H 02/17/22 14:47 Other Crystals Unidentified /hpf 02/17/22 14:47 Amorphous Sediment Not Reportable 02/17/22 14:47 Urine Bacteria Trace /hpf (NONE) 02/17/22 14:47 EKG Data EKG 1: I personally reviewed and interpreted this EKG as follows: Interpretation: Contemporaneous review of EKG reveals normal sinus rhythm. Ventricular rate of 62 bpm. MO interval QRS duration normal QTC is normal. No acute ST-T wave changes noted. Discharge Plan Discharge Patient Disposition: Placed in Observation Clinical Impression: Cerebrovascular accident, Type 2 diabetes mellitus, History of atrial fibrillation Condition: Stable Prescriptions: No Action albuterol sulfate [Ventolin HFA] 90 mcg/actuation HFA aerosol inhaler 2 puff INHALATION Q6H PRN (Reason: Shortness Of Breath) omega-3 fatty acids 1,000 mg capsule 1,000 mg PO DAILY naproxen sodium [Aleve] 220 mg capsule 220 mg PO BID PRN (Reason: Pain) All Day Allergy (cetirizine) 10 mg capsule 10 mg PO DAILY fluticasone propionate [Flonase Allergy Relief] 50 mcg/actuation spray,suspension 2 spray INTRANASAL DAILY PRN (Reason: Nasal Congestion) nystatin-triamcinolone 100,000-0.1 unit/gram-% ointment 1 applic topical TID Qty: 60 1RF Symbicort 160-4.5 mcg/actuation HFA aerosol inhaler 2 puff INHALATION BID Qty: 10.2 4RF nystatin 100,000 unit/gram powder 1 applic topical QID Qty: 60 4RF (DME) pen needle, diabetic [1st Tier Unifine Pentips] 32 gauge x 5/32 needle See Rx Instructions .ROUTE .MEDSUPPLY Qty: 300 3RF Rx Instructions: As directed three times a day pioglitazone [Actos] 45 mg tablet 45 mg PO DAILY Qty: 90 3RF escitalopram oxalate 20 mg tablet 20 mg PO DAILY Qty: 90 3RF metoprolol tartrate 50 mg tablet 50 mg PO BID Qty: 180 3RF hydralazine 10 mg tablet 10 mg PO BID pantoprazole 40 mg tablet,delayed release (DR/EC) 40 mg PO BID losartan 25 mg tablet 25 mg PO DAILY Lantus Solostar U-100 Insulin 100 unit/mL (3 mL) insulin pen 20 unit SUBCUT BEDTIME Referrals: Nacho Stovall DO [Primary Care Provider] - Coding Level of Care Code ED Document Control Supervisor for Chg Fwd Exam Comprehensive
[2022-02-17 12:46] LABS: INR 1.02 (0.8-1.2)
[2022-02-17 12:50] LABS: Basophils % 0.3 %; Eosinophils # 0.4 10^3/uL (0.0-0.8); Eosinophils % 4.6 %; Hematocrit 38.6 % (37.0-47.0); Hemoglobin 12.1 g/dL (11.5-15.3); Lymphocytes # 1.4 10^3/uL (0.8-4.8); Lymphocytes % 16.1 %; Mean Corpuscular HGB Conc 31.3 g/dL (30.0-36.0); Mean Corpuscular Hemoglobin 30.3 pg (28.0-34.0); Mean Corpuscular Volume 96.5 fl (81-99); Mean Platelet Volume 10.8 fL (7.4-10.4); Monocytes # 0.6 10^3/uL (0.2-0.9); Monocytes % 6.7 %; Neutrophils # 6.25 10^3/uL (1.8-7.7); Nucleated Red Blood Cells % 0 %; Platelet Count 250 10^3/cmm (130-400); Red Cell Distribution Width 14.1 % (12.1-15.1); White Blood Count 8.7 10^3/uL (4.0-10.0)
[2022-02-17 12:53] LABS: Alanine Aminotransferase 9 U/L (0-33); Albumin Level 3.9 g/dL (3.5-5.2); Alkaline Phosphatase 107 U/L (35-105); Anion Gap 16.9 (5-19); Aspartate Amino Transferase 10 U/L (0-32); Blood Urea Nitrogen 17 mg/dL (8-23); Calcium 8.9 mg/dL (8.5-10.5); Carbon Dioxide 24 mmol/L (22-29); Chloride 99 mmol/L (98-107); Globulin 3.5 g/dL (1.3-4.6); Glucose 189 mg/dL (65-115); Osmolality Calculated 287 mOsm/kg (285-295); Potassium 4.9 mmol/L (3.5-5.1); Sodium 135 mmol/L (136-145); Total Bilirubin 0.4 mg/dL (0.15-1.2); Total Protein 7.4 g/dL (6.6-8.7)
--- NOTE | 2022-02-17 13:42 | ECG_ITS ---
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 Measurements Intervals [place] Rate: 62 P: 80 DE: 180 QRS: 63 QRSD: 87 T: 72 QT: 457 QTc: 465 Interpretive Statements SINUS RHYTHM WITH SINUS ARRHYTHMIA Compared to ECG 03/12/2021 13:16:13 No significant changes Electronically Signed On 02-17-2022 17:24:53 DIRECTOR OF PUPIL PERSONNEL PROGRAM by Allan Glover M.D. [email or web address]
[2022-02-17 15:08] LABS: Add Urine Microscopic? YES; Bilirubin Urine Neg (Negative); Blood Urine Neg (Negative); Glucose Urine UA Norm (Normal); Ketones Urine Negative (Negative); Leukocyte Esterase Urine 2+ (Negative); Nitrate Urine Negative (Negative); Protein Urine Neg (Negative); RBC Urine 0-4 /hpf (0-2); Specific Gravity, Urine 1.015 (1.005-1.030); Urine Appearance Clear (CLEAR); Urine Color Yellow (Yellow); Urobilinogen Urine Norm (Negative); pH Urine 5 (5-7)
[2022-02-17 15:09] LABS: Bacteria Urine TRACE /hpf; Other Crystals Urine UNIDENTIFIED /hpf; Squamous Epithelial Cell Urine 0-4 /hpf (0-5)
[2022-02-17 15:10] LABS: Add Urine Culture? No
--- NOTE | 2022-02-17 22:10 | PC.NURSE ---
pt brought daily pill box with home meds. pt states she does not take any narcs, unable to identify medications. This nurse attached pts label to pill box and placed in Pyxis.
--- NOTE | 2022-02-17 22:42 | USCV_ITS ---
Shana Valle Age: 71 Gender: F : 1950 Exam Date: 02/17/2022 23:50 Ordering Phys: Svetlana Calvin MD Technologist: JACOB Exam Location: [facility] [place] Indication: speech difficulties. history of HTN, DM. BP: 174 / 91 HR: 57 Rhythm: Sinus Technical Quality: Adequate MEASUREMENTS (Male / Female) Normal Values 2D ECHO LV Diastolic Diameter PLAX 4.3 cm 4.2 - 5.9 / 3.9 - 5.3 cm LV Systolic Diameter PLAX 2.4 cm IVS Diastolic Thickness 1.0 cm 0.6 - 1.0 / 0.6 - 0.9 cm IVS Systolic Thickness 1.5 cm LVPW Diastolic Thickness 1.1 cm 0.6 - 1.0 / 0.6 - 0.9 cm LVPW Systolic Thickness 1.7 cm LVOT Diameter 1.9 cm LV Ejection Fraction 2D Teich 74.9 % LV Ejection Fraction MOD 2C 66.3 % LV Ejection Fraction 2C AL 66.4 % LA Diameter 4.8 cm LA Width 4.5 cm LA Height 5.5 cm RA Width 3.0 cm RA Height 4.3 cm Aorta at Sinotubular Diameter 2.4 cm IVC Diameter 1.7 cm M-MODE Aortic Annulus Diameter 3.0 cm LA Ao Ratio MM 1.6 MV E Point Septal Separation 0.4 cm DOPPLER AV Peak Velocity 134.0 cm/s LVOT Peak Velocity 99.0 cm/s AV Area Cont Eq vti 2.3 cm squared AV Area Cont Eq pk 2.1 cm squared MV Area PHT 4.3 cm squared Mitral E to A Ratio 0.8 MV E' Velocity 51.0 cm/s Mitral E to MV E' Ratio 8.3 Mitral E to LV E' Lateral Ratio 6.5 Mitral E to LV E' Septal Ratio 11.5 TV Peak E Velocity 46.0 cm/s PV Peak Velocity 77.0 cm/s RV Acceleration Time 0.1 s RV Ejection Time 0.4 s RV AcT/ET 0.3 FINDINGS Left Ventricle Normal left ventricular size and systolic function, EF 66 %. No regional wall motion abnormalities. Grade I/IV diastolic dysfunction (abnormal relaxation filling pattern), normal to mildly elevated filling pressures. Right Ventricle The right ventricle is normal in size and function. Right Atrium The right atrium is normal in size. Left Atrium Moderately increased left atrial size. Mitral Valve Thickened mitral valve. Trace mitral valve regurgitation. Aortic Valve Thickened aortic valve. Tricuspid Valve No gross abnormalities noted Pulmonic Valve No gross abnormalities noted Pericardium Normal pericardium without effusion. Aorta Normal ascending aorta dimension. IVC Normal inferior vena cava. CONCLUSIONS Normal left ventricular size and systolic function, EF 66 %. No regional wall motion abnormalities. Grade I/IV diastolic dysfunction (abnormal relaxation filling pattern), normal to mildly elevated filling pressures. Thickened mitral valve. Trace mitral valve regurgitation. Moderately increased left atrial size. Thickened aortic valve. There is no pericardial effusion. There are no intracardiac masses. No similar previous studies are available for comparison Dr Srikanth Alvarenga MD FACC (Electronically Signed) Final Date: 18 February 2022 09:54 S
--- NOTE | 2022-02-17 22:42 | USCV_ITS ---
OscarpedroShana Age: 71 Gender: F : 1950 Exam Date: 02/17/2022 23:11 Ordering Phys: Svetlana Calvin MD Technologist: JACOB [place] [facility] [place]ication: speech difficulties, history HTN, DM Risk Factors: speech difficulties, history HTN, DM Previous Vascular Surgery: None Right Brachial BP: 174 / 91 Left Brachial BP: / Right Left Velocity (cm/s) Spectral Plaque Velocity (cm/s) Spectral Plaque Syst/Diast Broadening Syst/Diast Broadening 116.90/12.10 None Homo Prox CCA 60.70 / 6.80 None Homo 58.70/ 10.10 None Homo Mid CCA 78.60 / 12.80 None Homo 55.50/ 11.70 Min Hetro Distal CCA 65.80 / 13.70 Min Hetro 57.80/ 15.80 Min Hetro Prox ICA 66.20 / 13.90 Min Hetro 45.40/ 11.20 Min Hetro Mid ICA 70.10 / 21.80 Min Hetro 51.30/ 11.80 Min Hetro Distal ICA 68.90 / 18.10 Min Hetro 64.40 Min Hetro ECA 42.20 Min Hetro 0.49 ICA/CCA 0.89 Antegrade Vertebral Antegrade 32.90/ 9.20 cm/s 39.40/ 13.10 cm/s Tri Subclavian Tri 114.5 143.3 0 0 CONCLUSIONS Bilateral tortous ICA's Right ICA stenosis <50%. Mild atheromatous plaque right carotid bulb/ICA. Left ICA stenosis <50%. Mild atheromatous plaque left carotid bulb/ICA. Normal antegrade Doppler flow noted in the right vertebral artery. Normal antegrade Doppler flow noted in the left vertebral artery. Delfino Leonard MD (Electronically Signed) Final Date: 18 February 2022 09:23 S
--- NOTE | 2022-02-17 22:50 | P.HP_ITS ---
Providers/Chief Complaint Admitting Physician: Svetlana Calvin MD Primary Care Provider: Nacho Stovall DO Chief Complaint: Slurred Speech History of Present Illness Shana Valle is a 71 year old female who is presenting to the emergency room this evening with chief complaint of slurred speech that she noted on Wednesday. Denies any focal weakness in any other extremity. States that she was normal on Wednesday night before she went to bed however on Wednesday she noticed some slurred speech however none of her family members noted the same therefore she did not pay much attention to it. Today she called her primary care doctor and they also thought that her speech was somewhat abnormal and directed her to come to the emergency room. Due to concern for possible stroke a CT of the head was performed which did not show any acute changes. She has a history of hypertension diabetes and other stroke risk factors however has not previously had any stroke. She denies any dysphagia currently. Of note patient is edentulous, does not like wearing her dentures as they do not fit very well. Is in the process of getting new dentures. Also reports overall very dry mouth. Review of systems negative for any fever chills cough chest pain dyspnea or palpitations. Review of Systems General: Reports: 10 or more systems reviewed and unremarkable except in HPI and below Const: Denies: fever(s), chills or body aches Eyes: Denies: change in vision, blurry vision or photophobia ENMT: Reports: hoarseness; Denies: throat pain, enlarged tonsils, odynophagia or nasal congestion Card: Denies: chest pain, palpitations, irregular heart rhythm, edema, swelling of feet/ankles, lightheadedness, pre-syncope, dyspnea on exertion or orthopnea Resp: Denies: dyspnea, productive cough, non-productive cough, wheezing, stridor, pain on inspiration, change in phlegm color, hemoptysis or chest congestion GI: Denies: abdominal pain, nausea, vomiting, hematemesis, coffee ground emesis, dysphagia, heartburn, diarrhea, constipation, GI cramping, change in stool character, hematochezia or melena : Denies: flank pain, difficulty voiding, dysuria, urinary frequency, urinary urgency, urinary hesitancy or hematuria Musc: Denies: neck pain, back pain, extremity pain, joint swelling, joint warmth or deformity Neuro: Denies: headache(s), numbness in extremities, weakness in extremities, sensory changes, difficulty walking, frequent falls, dizziness, vertigo, behavioral changes, Slurred speech present or seizure-like activity Psych: Denies: anxiety, depression, suicidal ideation or homicidal ideation Endo: Denies: polyuria, polydipsia, tired all the time, cold intolerance or h ot flashes Royce/Lymph: Denies: easy bruising or easy bleeding Medications/Allergies Home Medications Medication Instructions Recorded Confirmed Last Taken Type albuterol sulfate 90 mcg/actuation 2 puff inhalation Q6H PRN 03/29/19 02/17/22 Unknown History aerosol inhaler (Ventolin HFA) Shortness Of Breath cetirizine 10 mg capsule (All Day 10 mg PO DAILY 03/29/19 02/17/22 02/17/22 History Allergy (cetirizine)) naproxen sodium 220 mg capsule 220 mg PO BID PRN Pain 03/29/19 02/17/22 Unknown History (Aleve) omega-3 fatty acids 1,000 mg 1,000 mg PO DAILY 03/29/19 02/17/22 02/17/22 History capsule budesonide-formoterol HFA 160 2 puff inhalation BID #10.2 grams 10/23/20 02/17/22 02/17/22 Rx mcg-4.5 mcg/actuation aerosol inhaler (Symbicort) pen needle, diabetic 32 gauge x #300 ea 02/19/21 02/17/22 Unknown Rx 5/32 (1st Tier Unifine Pentips) pioglitazone 45 mg tablet (Actos) 45 mg PO DAILY #90 tabs 04/07/21 02/17/22 02/17/22 Rx nystatin-triamcinolone 100,000 1 applic topical TID #60 grams 04/21/21 02/17/22 Unknown Rx unit/gram-0.1 % topical ointment fluticasone propionate 50 2 spray intranasal DAILY PRN Nasal 06/02/21 02/17/22 Unknown History mcg/actuation nasal Congestion spray,suspension (Flonase Allergy Relief) escitalopram oxalate 20 mg tablet 20 mg PO DAILY #90 tabs 06/23/21 02/17/22 02/17/22 Rx metoprolol tartrate 50 mg tablet 50 mg PO BID #180 tabs 01/26/22 02/17/22 02/17/22 Rx nystatin 100,000 unit/gram topical 1 applic topical QID #60 grams 01/27/22 02/17/22 Unknown Rx powder hydralazine 10 mg tablet 10 mg PO BID 02/17/22 02/17/22 02/17/22 History insulin glargine 100 unit/mL (3 20 unit SUBCUT BEDTIME 02/17/22 02/17/22 02/16/22 History mL) subcutaneous pen (Lantus Solostar U-100 Insulin) losartan 25 mg tablet 25 mg PO DAILY 02/17/22 02/17/22 02/17/22 History pantoprazole 40 mg tablet,delayed 40 mg PO BID 02/17/22 02/17/22 02/16/22 History release aspirin 81 mg tablet,delayed 81 mg PO DAILY #30 tabs 02/18/22 Unknown Rx release Allergies Allergy/AdvReac Type Severity Reaction Status Date / Time tetracycline Allergy Intermediate RASH Verified 12/30/21 10:59 Sulfa (Sulfonamide Allergy Unknown UNKNOWN Verified 12/30/21 10:59 Antibiotics) venlafaxine Allergy Unknown UNKNOWN Verified 12/30/21 10:59 PFSH Acute PFSH: Medical History Afib Blackout spell Depression GERD (gastroesophageal reflux disease) Hyperlipidemia Hypertension, benign Hypothyroid Obesity Sleep apnea Social History Smoking and tobacco status: never smoked Quit status (tobacco): has quit using tobacco Year quit tobacco: 2001 Alcohol intake: never Vitals/I&O/Wt Last Vital Signs Temp 97.6 F 02/17/22 20:00 Pulse 57 L 02/17/22 21:00 Resp 14 02/17/22 21:00 BP 174/91 02/17/22 21:00 Pulse Ox 94 02/17/22 20:00 O2 Del Method 02/17/22 20:00 Weight last 48 hrs Weight 95.254 kg Physical Exam Narrative: General: No acute distress, AO x3 HEENT: PERRLA, pupils bilaterally equal and reactive, pallors not present Chest: Normal vesicular breath sounds, no added sounds, equal good air entry bilaterally CVS: S1-S2 regular, no murmurs, no tachycardia, no gallops, no rubs Abdomen: Soft, nontender, no organomegaly, bowel sounds present Neuro: No focal deficits, no facial deformity, AO x3, power 5/5 in all limbs Data 02/17/22 12:21 02/17/22 12:21 A&P Assessment and plan (1) Dysarthria: Patient presenting to the emergency room today with chief complaints of dysarthr ia that she has noticed since over the weekend. Patient does have somewhat slurred speech, however I am unable to ascertain if this is more related to her being edentulous and having a dry mouth and rolling her tongue significantly versus having true dysarthria. She does not appear to have any word finding difficulty or aphasia. Patient is extremely concerned about the possibility of a stroke given her multiple other risk factors. CT of her head did not show any large vessel infarct currently. Will admit patient in observation and monitor her on telemetry to a certain if there is any underlying arrhythmia. Patient does endorse intermittent palpitations, of note she did have a Holter monitoring done in May 2021 which did not show any events apart from sinus bradycardia. We will additionally obtain echocardiogram and bilateral carotid Doppler to evaluate for possible CVA versus TIA. Started on aspirin 81 mg p.o. daily. Further orders based on results of above testing. 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
[2022-02-17] MEDS: acetaminophen 325 mg Tablet 650 MG PO (23:55)
[2022-02-18] VITALS (9 sets, daily range): BP systolic 126–135; BP diastolic 62–71; PULSE 62–70; RESP 16–18; TEMP 36.5–36.7; O2SAT 93–96
[2022-02-18] MEDS: escitalopram 10 mg Tablet 20 MG PO (08:22)
[2022-02-18] MEDS: aspirin 81 mg EC Tablet PO (08:22)
[2022-02-18] MEDS: pantoprazole DR 40 mg Tablet PO ×2 (08:22→17:55)
[2022-02-18] MEDS: losartan 50 mg Tablet 25 MG PO (08:22)
[2022-02-18] MEDS: omega-3 fatty acids 1,000 mg Capsule 1000 MG PO (08:22)
[2022-02-18] MEDS: nystatin powder 15 gm Btl 1 APPLIC TOPICAL (08:22)
[2022-02-18] MEDS: hyDRALAzine 10 mg Tablet PO ×2 (08:22→17:55)
[2022-02-18] MEDS: metoprolol tartrate 50 mg Tablet PO ×2 (08:22→17:55)
[2022-02-18] MEDS: budesonide 0.5 mg/2 mL Neb INHALATION (09:03)
[2022-02-18] MEDS: albuterol 2.5 mg/3 mL Neb INHALATION (09:08)
--- NOTE | 2022-02-18 10:18 | PC.CHAP ---
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 [] Patient/Family/Request visit [] Outpatient visit [] Follow-up visit [] Physician referral [] Code/Alert [x] Routine visit [] Staff referral [] Actively dying [] Patient sleeping [] Family support [] [] Out of room [] Palliative care [] [] Receiving care in room [] Pre-surgical visit [] Trauma [] Long length of stay [] ICU visit [] Other: Relational/Emotional Strength [x] Patient feels connected with others/family/visitors/staff [] Distress [] Loneliness/isolation [] Abandonment Spirituality of Patient [x] Person of Shu [] Attends Uatsdin of their Shu [x] Believes in Prayer [x] Reads Bible or Yarsani materials [] There are Spiritual issues to be addressed Supervisor [employer] Interventions [x]x Prayer [x] Active listening x] Non-anxious presence [x] Spiritual/emotional support [x] Crisis/trauma care [] Spiritual counseling [] Bereavement support [] Provided bereavement packet [] Provided Bible/devotional materials [] Provided toy/stuffed animal, coloring book to patient or family member [] Provided Communion [] Anointing/[place] [] Salvation [x]x Completed spiritual assessment [] Other: Impact on Illness or Injury [] Angry [] Fearful [] Anxious [] Often cries [] Exhaustion [] Unable to work [] Unable to attend buddhism [] Unable to walk/stand [] Unable to read [] Unable to drive [] Unable to eat/drink [] Unable to sleep [] Unable to be with family [] Patient intubated [] Other: Summary Time spent with patient 10 min
--- NOTE | 2022-02-18 19:20 | P.DS_ITS ---
Discharge Providers Date of Admission: 02/17/22 18:05 Date of Discharge: February 18, 2022 Attending Provider at Admission: Svetlana Calvin MD Attending Provider at Discharge: Svetlana Calvin MD Primary Care Provider: Nacho Stovall DO Diagnoses at Discharge Discharge Diagnosis (1) Dysarthria: Status: Acute (2) TIA (transient ischemic attack): Status: Acute Reason for Visit Reason for Visit: Slurred Speech Hospital Course Hospital Course Patient was admitted yesterday to the hospital in observation due to evaluation of new onset dysarthria. Due to concern for possible CVA versus TIA patient was observed in the hospital overnight. Telemetry did not show any acute events. She had a previous Holter monitor placed in May 2021 which showed a baseline sinus bradycardia without other events. Holter monitoring was not repeated as it was been performed within the past year without any acute events. Carotid Doppler was negative for any significant stenosis. CT head did not show any acute CVA. Echocardiogram additionally with normal left ventricular size and function with EF of 66% grade 1 diastolic dysfunction and a thickened mitral valve with trace mitral regurgitation. No intracardiac masses were noted. NIH stroke scale was 0 Patient had somewhat of a slurred speech, however overall it was difficult to ascertain if this was related to being edentulous and having a dry mouth versus a true dysarthria. She had no aphasia or word finding difficulty. She had no focal neurological deficits. She is being discharged today in stable condition. Recommended to try [id number] Biotene for dry mouth and recommended to follow-up with her dentist for well fitting dentures. Speech evaluation was performed prior to discharge and no swallowing abnormalities were noted. Physical Exam Narrative: General: No acute distress, AO x3 HEENT: PERRLA, pupils bilaterally equal and reactive, pallors not present Chest: Normal vesicular breath sounds, no added sounds, equal good air entry bilaterally CVS: S1-S2 regular, no murmurs, no tachycardia, no gallops, no rubs Abdomen: Soft, nontender, no organomegaly, bowel sounds present Neuro: No focal deficits, no facial deformity, AO x3, power 5/5 in all limbs Discharge Data Studies Completed and Pending Completed Studies During Hospitalization Category Date Time Status CT head thrombolytic [id number] Stat Cat Scan 02/17/22 12:32 Completed CV carotid duplex BI* [id number] Routine Ultrasound 02/17/22 22:42 Completed CV. echo complete* [id number] Routine Ultrasound 02/17/22 22:42 Completed Radiology Impressions Head CT 02/17/22 12:32 IMPRESSION: 1. No evidence of intracranial hemorrhage or mass effect. 2. Moderate small vessel changes. Moderate parenchymal volume loss. 3. Trace fluid in the sphenoid sinus. 4. No acute intracranial findings. Notified Rafael Vásquez DO at 02/17/2022 1:10PM. Laboratory Results WBC 8.7 10^3/uL (4.0-10.0) 02/17/22 12:21 RBC 4.00 10^6/uL (4.1-5.3) L 02/17/22 12:21 Hgb 12.1 g/dL (11.5-15.3) 02/17/22 12: Hct 38.6 % (37.0-47.0) 02/17/22 12:21 MCV 96.5 fl (81-99) 02/17/22 12: MCH 30.3 pg (28.0-34.0) 02/17/22 12: MCHC 31.3 g/dL (30.0-36.0) 02/17/22 12: RDW 14.1 % (12.1-15.1) 02/17/22 12:21 Plt Count 250 10^3/cmm (130-400) 02/17/22 12:21 MPV 10.8 fL (7.4-10.4) H 02/17/22 12:21 Neut % (Auto) 72.0 % 02/17/22 12:21 Lymph % (Auto) 16.1 % 02/17/22 12:21 [place] % (Auto) 6.7 % 02/17/22 12:21 Eos % (Auto) 4.6 % 02/17/22 12:21 Baso % (Auto) 0.3 % 02/17/22 12:21 Neut # (Auto) 6.25 10^3/uL (1.8-7.7) 02/17/22 12:21 Lymph # (Auto) 1.4 10^3/uL (0.8-4.8) 02/17/22 12:21 [place] # (Auto) 0.6 10^3/uL (0.2-0.9) 02/17/22 12:21 Eos # (Auto) 0.4 10^3/uL (0.0-0.8) 02/17/22 12:21 Baso # (Auto) 0.0 10^3/uL (0.0-0.1) 02/17/22 12:21 Nucleated RBC % (auto) 0 % 02/17/22 12: Nucleated RBCs # 0.0 /100WBC 02/17/22 12: PT 13.70 SECONDS (12.1-14.9) 02/17/22 12:21 INR 1.02 (0.8-1.2) 02/17/22 12:21 Sodium 135 mmol/L (136-145) L 02/17/22 12:21 Potassium 4.9 mmol/L (3.5-5.1) 02/17/22 12:21 Chloride 99 mmol/L (98-107) 02/17/22 12:21 Carbon Dioxide 24 mmol/L (22-29) 02/17/22 12:21 Anion Gap 16.9 (5-19) 02/17/22 12:21 BUN 17 mg/dL (8-23) 02/17/22 12:21 Creatinine 0.7 mg/dL (0.5-0.9) 02/17/22 12:21 GFR Calculation Not Reportable 02/17/22 12: Glucose 189 mg/dL (65-115) H 02/17/22 12:21 Calculated Osmolality 287 mOsm/kg (285-295) 02/17/22 12: Calcium 8.9 mg/dL (8.5-10.5) 02/17/22 12:21 Total Bilirubin 0.4 mg/dL (0.15-1.2) 02/17/22 12:21 AST 10 U/L (0-32) 02/17/22 12:21 ALT 9 U/L (0-33) 02/17/22 12:21 Alkaline Phosphatase 107 U/L (35-105) H 02/17/22 12:21 Total Protein 7.4 g/dL (6.6-8.7) 02/17/22 12:21 Albumin 3.9 g/dL (3.5-5.2) 02/17/22 12:21 Globulin 3.5 g/dL (1.3-4.6) 02/17/22 12:21 Urine Color Yellow (Yellow) 02/17/22 14:47 Urine Appearance Clear (CLEAR) 02/17/22 14:47 Urine pH 5 (5-7) 02/17/22 14:47 Ur Specific [place] 1.015 (1.005-1.030) 02/17/22 14:47 Urine Protein Neg (Negative) 02/17/22 14:47 Urine Glucose (UA) Norm (Normal) 02/17/22 14:47 Urine Ketones Negative (Negative) 02/17/22 14:47 Urine Blood Neg (Negative) 02/17/22 14:47 Urine Nitrate Negative (Negative) 02/17/22 14:47 Urine Bilirubin Neg (Negative) 02/17/22 14:47 Urine Urobilinogen Norm mg/dL (Negative) 02/17/22 14:47 Ur Leukocyte Esterase 2+ (Negative) H 02/17/22 14:47 Urine RBC 0-4 /hpf (0-2) H 02/17/22 14:47 Urine WBC 5-10 /hpf (0-5) H 02/17/22 14:47 Ur Squamous Epith Cells 0-4 /hpf (0-5) H 02/17/22 14:47 Other Crystals Unidentified /hpf 02/17/22 14:47 Amorphous Sediment Not Reportable 02/17/22 14:47 Urine Bacteria Trace /hpf (NONE) 02/17/22 14:47 Vitals Last Vital Signs Temp 98 F 02/18/22 18:34 Pulse 70 02/18/22 18:34 Resp 16 02/18/22 18:34 BP 135/71 02/18/22 18:34 Pulse Ox 93 02/18/22 18:34 O2 Del Method 02/18/22 09:15 Discharge Plan Discharge Patient Disposition: Home Condition: Stable Prescriptions: New aspirin 81 mg Tablet,Delayed Release (Dr/Ec) 81 mg PO DAILY Qty: 30 0RF Continued albuterol sulfate [Ventolin HFA] 90 mcg/actuation HFA aerosol inhaler 2 puff INHALATION Q6H PRN (Reason: Shortness Of Breath) omega-3 fatty acids 1,000 mg capsule 1,000 mg PO DAILY naproxen sodium [Aleve] 220 mg capsule 220 mg PO BID PRN (Reason: Pain) All Day Allergy (cetirizine) 10 mg capsule 10 mg PO DAILY fluticasone propionate [Flonase Allergy Relief] 50 mcg/actuation spray,suspension 2 spray INTRANASAL DAILY PRN (Reason: Nasal Congestion) nystatin-triamcinolone 100,000-0.1 unit/gram-% ointment 1 applic topical TID Qty: 60 1RF Symbicort 160-4.5 mcg/actuation HFA aerosol inhaler 2 puff INHALATION BID Qty: 10.2 4RF nystatin 100,000 unit/gram powder 1 applic topical QID Qty: 60 4RF (DME) pen needle, diabetic [1st Tier Unifine Pentips] 32 gauge x 5/32 needle See Rx Instructions .ROUTE .MEDSUPPLY Qty: 300 3RF Rx Instructions: As directed three times a day pioglitazone [Actos] 45 mg tablet 45 mg PO DAILY Qty: 90 3RF escitalopram oxalate 20 mg tablet 20 mg PO DAILY Qty: 90 3RF metoprolol tartrate 50 mg tablet 50 mg PO BID Qty: 180 3RF hydralazine 10 mg tablet 10 mg PO BID pantoprazole 40 mg tablet,delayed release (DR/EC) 40 mg PO BID losartan 25 mg tablet 25 mg PO DAILY Lantus Solostar U-100 Insulin 100 unit/mL (3 mL) insulin pen 20 unit SUBCUT BEDTIME Discharge Orders: Discharge Order (Routine); Ordered 02/18/22 Ordered By: Svetlana Calvin Referrals: Nacho Stovall DO [Primary Care Provider] - 02/24/22 10:20 am (APPOINTMENT WITH KARY HUANG) Patient Instructions: Stroke (GEN), Opioid Safety, Stroke Stoplight Discharge Attestations Time Spent in Discharge Care*: greater than 30 min Specific Discharge Activities: educating patient and documenting/other paperwork Quality Metrics Clinical Quality Measures [ No reported AMI, CVA or VTE this stay] Coding Level of Care Code Acute Chg FW DC note Diagnoses Dysarthria R47.1 TIA (transient ischemic attack) G45.9
== END 2022-02-18 18:35 | disposition home or self-care (01) ==
LOC: ER 17:39 → MEDSURG 18:06
PROVIDERS: Admitting Provider Student in an Organized Health Care Education/Training Program; Emergency Provider Emergency Medicine; PCP Family Medicine; Visit Provider Student in an Organized Health Care Education/Training Program
DX: R47.1 Dysarthria and anarthria (principal); G45.9 Transient cerebral ischemic attack, unspecified; I48.91 Unspecified atrial fibrillation; I65.23 Occlusion and stenosis of bilateral carotid arteries; F32.A Depression, unspecified; E78.5 Hyperlipidemia, unspecified; K21.9 Gastro-esophageal reflux disease without esophagitis; I10 Essential (primary) hypertension; E03.9 Hypothyroidism, unspecified; G47.30 Sleep apnea, unspecified; E66.9 Obesity, unspecified; Z68.41 Body mass index [BMI] 40.0-44.9, adult
CPT/HCPCS: 70450; 80053; 81001; 85025; 85610; 92523; 93005; 93306; 93880; 94640; 99285; G0378; J7613; J7626

== ENCOUNTER → 2022-02-24 10:51 | Outpatient (BNVA) | payer MEDICARE, MEDICAID, SELFPAY | PROVIDERS: PCP Family Medicine; Visit Provider Nurse Practitioner Family | DX: E11.9 Type 2 diabetes mellitus without complications (principal); I10 Essential (primary) hypertension | CPT/HCPCS: 80061; 83036 ==

== ENCOUNTER 2022-03-28 12:50 | Emergency (ER) | payer MEDICARE, MEDICAID, SELFPAY ==
[2022-03-28 13:03] VITALS: BP 145/85; PULSE 71; RESP 18; TEMP 36.4; O2SAT 96
--- NOTE | 2022-03-28 13:24 | CTR_ITS ---
PROCEDURE INFORMATION: Exam: CT Chest Without Contrast; Diagnostic Exam date and time: 03/28/2022 1:44 PM Age: 72 years old Clinical indication: Injury or trauma; Fall; Luq; Blunt trauma (contusions or hematomas); Additional info: Fall, eval left lower rib FX vs splenic traumatic injury TECHNIQUE: Imaging protocol: Diagnostic computed tomography of the chest without contrast. Radiation optimization: All CT scans at this facility use at least one of these dose optimization techniques: automated exposure control; mA and/or kV adjustment per patient size (includes targeted exams where dose is matched to clinical indication); or iterative reconstruction. Other protocol: This patient has received [address] and 0 known cardiac nuclear medicine studies in the 12 months prior to the current study. COMPARISON: CT chest abdpel w/*[id number] 03/12/2021 2:22 PM RADIATION DOSE METRICS: Total DLP (mGy-cm): 689.17 FINDINGS: Lungs: Unremarkable. No consolidation. No masses. Pleural spaces: Unremarkable. No pneumothorax. No pleural effusion. Heart: Unremarkable. No cardiomegaly. No pericardial effusion. Coronary arteries: Multivessel atherosclerotic disease which involves the coronary arteries. Lymph nodes: Unremarkable. No enlarged lymph nodes. Vasculature: Unremarkable. No aortic aneurysm. Bones/joints: Minimal thoracolumbar lateral curvatures. Moderate chronic compression fracture of the T12 superior endplate appears similar to the prior CT scan and is associated with a degenerative Schmorl's node. There are minimal compression deformities of the T3 through T6 superior endplates also similar to the prior study. No evidence for acute fracture. Old/healed fractures through the right 4th through 6th ribs. Soft tissues: Unremarkable. PROCEDURE INFORMATION: Exam: CT Abdomen Without Contrast Exam date and time: 03/28/2022 1:44 PM Age: 72 years old Clinical indication: Injury or trauma; Fall; Luq; Blunt trauma (contusions or hematomas); Additional info: Fall, eval left lower rib FX vs splenic traumatic injury TECHNIQUE: Imaging protocol: Computed tomography of the abdomen without contrast. Radiation optimization: All CT scans at this facility use at least one of these dose optimization techniques: automated exposure control; mA and/or kV adjustment per patient size (includes targeted exams where dose is matched to clinical indication); or iterative reconstruction. Other protocol: This patient has received [address] and 0 known cardiac nuclear medicine studies in the 12 months prior to the current study. COMPARISON: CT chest abdpel w/*[id number] 03/12/2021 2:22 PM RADIATION DOSE METRICS: Total DLP (mGy-cm): 689.17 FINDINGS: Liver: Normal. No mass. Gallbladder and bile ducts: Normal. No calcified stones. No ductal dilation. Pancreas: Normal. No ductal dilation. Spleen: Normal. No splenomegaly. Adrenal glands: Normal. No mass. Kidneys and ureters: 2.3 cm cyst in the left kidney has benign features. Follow-up is not necessary. Stomach and bowel: Visualized stomach and bowel are unremarkable. No obstruction. No mucosal thickening. Intraperitoneal space: Unremarkable. No free air. No significant fluid collection. Vasculature: Unremarkable. No abdominal aortic aneurysm. Lymph nodes: Unremarkable. No enlarged lymph nodes. Bones/joints: Minimal thoracolumbar lateral curvatures. There are degenerative changes in the visualized spine. Soft tissues: Unremarkable. CT/CT chest abdomen wo con IMPRESSION: 1. Moderate chronic compression fracture of the T12 superior endplate appears similar to the prior CT scan. 2. There are minimal compression deformities of the T3 through T6 superior endplates also similar to the prior study. 3. Old/healed fractures through the right 4th through 6th ribs. No evidence for acute fracture. IMPRESSION: No acute findings.Non acute findings as described above. COMMENTS: Consistent with the [employer]'s Incidental Findings Committee white paper (J Am Cory Radiol 2018): Any incidental renal lesion less than 1 cm or classified as too small to characterize, or any incidental cystic renal lesion characterized as simple-appearing, is likely benign. No follow-up imaging is recommended for these lesions per consensus recommendations based on imaging criteria.
--- NOTE | 2022-03-28 13:26 | W.ED.FALL ---
HPI - Fall General: Chief Complaint: Fall Stated Complaint: multiple falls, dizzy Time Seen by Provider: 03/28/22 12:52 History of Present Illness: 72-year-old female with past medical history of falls and chronic weakness of her lower extremities presenting emergency department after a fall. States that she lost her footing in her bathroom and fell, slumping to the floor on her left side against the tub at home. Did not strike her head, lose consciousness, have any nausea or vomiting. She had been walking to the bathroom and then stood in front of the sink prior to falling. No preceding chest pain, shortness of breath, or vision changes prior to. She states she has pain in her left side underneath her arm in her armpit area. There is a bruise over this area. She is not on blood thinners. Denies abdominal pain. Has fallen recently and on the other side. She has not followed up with her primary physician for these falls or polypharmacy consolidation. Denies urinary frequency, dysuria, fever, suprapubic abdominal pain. She had been walking to the bathroom and then stood in front of the sink prior to falling. MD complaint: fall Fall from: standing Associated symptoms-after fall: Reports chest pain (Per HPI) and lightheadedness (When she falls.) Review of Systems General: Reports: 10 or more systems reviewed and unremarkable except in HPI and below Const: Denies: fever(s) or chills Eyes: Denies: change in vision or blurry vision ENMT: Denies: throat pain or uvular edema Card: Reports: chest pain (Per HPI) and lightheadedness (When she falls.); Denies: palpitations PFSH ED PFSH: Medical History Afib Blackout spell Depression GERD (gastroesophageal reflux disease) Hyperlipidemia Hypertension, benign Hypothyroid Obesity Sleep apnea Social History Smoking and tobacco status: never smoked Quit status (tobacco): has quit using tobacco Year quit tobacco: 2001 Alcohol intake: never Physical Exam Const: COMMON NORMALS: no acute distress, average body habitus and patient oriented x3 HENMT: COMMON NORMALS: normocephalic, atraumatic, hearing grossly normal bilaterally, external ears normal, EAC's normal, TM's normal bilaterally, Normal external nose present and Normal nasal mucous membranes and turbinates present HEAD & SCALP: normocephalic and atraumatic FACE & SINUS: normal facial exam NOSE: Normal external nose present and Normal nasal mucous membranes and turbinates present EXTERNAL EAR: Yes external ears normal EXTERNAL AUDITORY CANAL: EAC's normal TYMPANIC MEMBRANE: TM's normal bilaterally THROAT: no uvular edema Eye: COMMON NORMALS: Equal, round and reactive pupils present, EOMs intact bilaterally, conjunctivae normal, no scleral icterus and no papilledema GENERAL EYE: appearance normal, both eyes and all related structures and normal light reflex VISUAL ARBOLEDA: Yes central vision loss CONJUNCTIVA: Yes conjunctivae normal PUPIL: Yes Equal, round and reactive pupils present DIRECT OPHTHALMOSCOPY: Yes normal light reflex and Yes no papilledema Neck/C-Spine: COMMON NORMALS: full ROM; negative for no lymphadenopathy Lymph: LYMPHATIC: No no lymphadenopathy noted and No no lymphedema noted Chest: COMMONS NORMALS: normal inspection of the chest (12 cm x 5 cm area of ecchymoses along the left axilla/posterior to mid axil) Cardio: COMMON NORMALS: regular rate and regular rhythm RATE: regular rate RHYTHM: regular rhythm GI: COMMON NORMALS: Soft to palpation and non-tender INSPECTION: Yes normal to inspection PALPATION: Yes Soft to palpation : COMMON NORMALS: Yes no CVA tenderness and Yes normal external appearance BLADDER/KIDNEY EXAM: Yes no CVA tenderness Back/Pelvis: COMMON NORMALS: no CVA tenderness PELVIS: pain with lateral compression and No tenderness over symphysis pubis SACROILIAC JOINTS: Yes SI joints normal Extremity: COMMON NORMALS: normal to inspection and full ROM GENERAL: Yes normal exam except as noted Neuro: COMMON NORMALS: patient oriented x3, moves all extremities and no sensory deficits noted Psych: COMMON NORMALS: mental status grossly normal and Normal thought process present THOUGHT PROCESS: Normal thought process present Course Vital Signs: Vital signs: Vital Signs Temperature 97.6 F 03/28/22 13:03 Pulse Rate 71 03/28/22 13:03 Respiratory Rate 18 03/28/22 13:03 Blood Pressure 145/85 03/28/22 13:03 Pulse Oximetry 96 03/28/22 13:03 Oxygen Delivery Me thod 03/28/22 13:03 MDM - Fall Medical Decision Making 72-year-old female presenting with a recurrent fall without loss of consciousness, prodromal symptoms, or obvious new traumatic injury. Vitals nonactionable. Review of systems negative for UTI complaints. Advised of the findings in the emergency department and need to follow-up with physician for polypharmacy changes considerations and repeat examination. Patient also advised to follow-up with physical therapy through referral from [facility] for hip strengthening exercises as a feel given her age and noncardiogenic nature of her falls (states she had a Zio patch previously with negative results) that she would benefit from strengthening exercises. Discharged from the emergency department with pain control precautions and return precautions if she should feel lightheaded or fall. Also educated about need to progress slowly from a seated to standing position. Medical Records I reviewed the patient's medical records. Lab Data I reviewed the patient's lab results. 03/28/22 14:10 03/28/22 14:10 Radiology Impressions Chest/Abdomen CT 03/28/22 13:24 IMPRESSION: 1. Moderate chronic compression fracture of the T12 superior endplate appears similar to the prior CT scan. 2. There are minimal compression deformities of the T3 through T6 superior endplates also similar to the prior study. 3. Old/healed fractures through the right 4th through 6th ribs. No evidence for acute fracture. IMPRESSION: No acute findings.Non acute findings as described above. COMMENTS: Consistent with the [employer]'s Incidental Findings Committee white paper (J Am Cory Radiol 2018): Any incidental renal lesion less than 1 cm or classified as too small to characterize, or any incidental cystic renal lesion characterized as simple-appearing, is likely benign. No follow-up imaging is recommended for these lesions per consensus recommendations based on imaging criteria. Laboratory Results WBC 13.0 10^3/uL (4.0-10.0) H 03/28/22 14:10 RBC 4.43 10^6/uL (4.1-5.3) 03/28/22 14:10 Hgb 12.9 g/dL (11.5-15.3) 03/28/22 14:10 Hct 42.2 % (37.0-47.0) 03/28/22 14:10 MCV 95.3 fl (81-99) 03/28/22 14:10 MCH 29.1 pg (28.0-34.0) 03/28/22 14:10 MCHC 30.6 g/dL (30.0-36.0) 03/28/22 14:10 RDW 14.1 % (12.1-15.1) 03/28/22 14:10 Plt Count 263 10^3/cmm (130-400) 03/28/22 14:10 MPV 10.7 fL (7.4-10.4) H 03/28/22 14:10 Neut % (Auto) 79.7 % 03/28/22 14:10 Lymph % (Auto) 11.9 % 03/28/22 14:10 [place] % (Auto) 5.9 % 03/28/22 14:10 Eos % (Auto) 1.8 % 03/28/22 14:10 Baso % (Auto) 0.3 % 03/28/22 14:10 Neut # (Auto) 10.33 10^3/uL (1.8-7.7) H 03/28/22 14:10 Lymph # (Auto) 1.5 10^3/uL (0.8-4.8) 03/28/22 14:10 Valencia # (Auto) 0.8 10^3/uL (0.2-0.9) 03/28/22 14:10 Eos # (Auto) 0.2 10^3/uL (0.0-0.8) 03/28/22 14:10 Baso # (Auto) 0.0 10^3/uL (0.0-0.1) 03/28/22 14:10 Nucleated RBC % (auto) 0 % 03/28/22 14:10 Nucleated RBCs # 0.0 /100WBC 03/28/22 14:10 PT 14.10 SECONDS (12.1-14.9) 03/28/22 14:10 INR 1.06 (0.8-1.2) 03/28/22 14:10 APTT 26.8 SECONDS (23.9-36.7) 03/28/22 14:10 Sodium 131 mmol/L (136-145) L 03/28/22 14:10 Potassium 4.6 mmol/L (3.5-5.1) 03/28/22 14:10 Chloride 97 mmol/L (98-107) L 03/28/22 14:10 Carbon Dioxide 25 mmol/L (22-29) 03/28/22 14:10 Anion Gap 13.6 (5-19) 03/28/22 14:10 BUN 19 mg/dL (8-23) 03/28/22 14:10 Creatinine 0.8 mg/dL (0.5-0.9) 03/28/22 14:10 GFR Calculation Not Reportable 03/28/22 14:10 Glucose 245 mg/dL (65-115) H 03/28/22 14:10 Calculated Osmolality 282 mOsm/kg (285-295) L 03/28/22 14:10 Calcium 9.3 mg/dL (8.5-10.5) 03/28/22 14:10 Discharge Plan Discharge Patient Disposition: Home, Self-Care w Plan Readm Clinical Impression: Fall Condition: Stable Prescriptions: No Action albuterol sulfate [Ventolin HFA] 90 mcg/actuation HFA aerosol inhaler 2 puff INHALATION Q6H PRN (Reason: Shortness Of Breath) omega-3 fatty acids 1,000 mg capsule 1,000 mg PO DAILY naproxen sodium [Aleve] 220 mg capsule 220 mg PO BID PRN (Reason: Pain) All Day Allergy (cetirizine) 10 mg capsule 10 mg PO DAILY nystatin-triamcinolone 100,000-0.1 unit/gram-% ointment 1 applic topical TID Qty: 60 1RF Symbicort 160-4.5 mcg/actuation HFA aerosol inhaler 2 puff INHALATION BID Qty: 10.2 4RF estradiol 0.01 % (0.1 mg/gram) cream 1 g vaginal DAILY Qty: 42.5 0RF Rx Instructions: for 14 days nystatin 100,000 unit/gram powder 1 applic topical QID Qty: 60 4RF aspirin 81 mg tablet,delayed release (DR/EC) 81 mg PO DAILY Qty: 90 0RF (DME) pen needle, diabetic [1st Tier Unifine Pentips] 32 gauge x 5/32 needle See Rx Instructions .ROUTE .MEDSUPPLY Qty: 300 3RF Rx Instructions: As directed three times a day pioglitazone [Actos] 45 mg tablet 45 mg PO DAILY Qty: 90 3RF escitalopram oxalate 20 mg tablet 20 mg PO DAILY Qty: 90 3RF metoprolol tartrate 50 mg tablet 50 mg PO BID Qty: 180 3RF hydralazine 10 mg tablet 10 mg PO BID pantoprazole 40 mg tablet,delayed release (DR/EC) 40 mg PO BID losartan 25 mg tablet 25 mg PO DAILY Lantus Solostar U-100 Insulin 100 unit/mL (3 mL) insulin pen 20 unit SUBCUT BEDTIME Discharge Orders: Discharge ED (Routine); Ordered 03/28/22 Ordered By: Anatoliy Ramirez Referrals: Nacoh Stovall, [Primary Care Provider] - (Follow-up with your regular doctor for review of your medications as these could be causing her falls. Additionally follow-up with your doctor for referral to physical therapy for strength building in her bilateral lower extremities.) Discharge Diet: Usual diet Discharge Activity: Resume usual activity Patient Instructions: Fall Prevention for Older Adults (ED) Coding Level of Care Code ED Splitter Head for Swapna Abreu
[2022-03-28 14:21] LABS: Basophils % 0.3 %; Eosinophils # 0.2 10^3/uL (0.0-0.8); Eosinophils % 1.8 %; Hematocrit 42.2 % (37.0-47.0); Hemoglobin 12.9 g/dL (11.5-15.3); Lymphocytes # 1.5 10^3/uL (0.8-4.8); Lymphocytes % 11.9 %; Mean Corpuscular HGB Conc 30.6 g/dL (30.0-36.0); Mean Corpuscular Hemoglobin 29.1 pg (28.0-34.0); Mean Corpuscular Volume 95.3 fl (81-99); Mean Platelet Volume 10.7 fL (7.4-10.4); Monocytes # 0.8 10^3/uL (0.2-0.9); Monocytes % 5.9 %; Neutrophils # 10.33 10^3/uL (1.8-7.7); Neutrophils % 79.7 %; Nucleated Red Blood Cells % 0 %; Platelet Count 263 10^3/cmm (130-400); Red Blood Count 4.43 10^6/uL (4.1-5.3); Red Cell Distribution Width 14.1 % (12.1-15.1)
[2022-03-28 14:31] LABS: INR 1.06 (0.8-1.2)
[2022-03-28 14:32] LABS: Partial Thromboplastin Time 26.8 SECONDS (23.9-36.7)
[2022-03-28 14:37] LABS: Anion Gap 13.6 (5-19); Blood Urea Nitrogen 19 mg/dL (8-23); Calcium 9.3 mg/dL (8.5-10.5); Carbon Dioxide 25 mmol/L (22-29); Chloride 97 mmol/L (98-107); Creatinine Clr Calc Pharmacy 62.8696; Glucose 245 mg/dL (65-115); Osmolality Calculated 282 mOsm/kg (285-295); Potassium 4.6 mmol/L (3.5-5.1); Sodium 131 mmol/L (136-145)
--- NOTE | 2022-03-28 14:47 | ECG_ITS ---
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 Measurements Intervals [place] Rate: 68 P: 60 LA: 165 QRS: 26 QRSD: 78 T: 30 QT: 346 QTc: 369 Interpretive Statements SINUS RHYTHM WITH OCCASIONAL SUPRAVENTRICULAR PREMATURE COMPLEXES NONSPECIFIC T-WAVE ABNORMALITY Compared to ECG 02/17/2022 13:42:53 T-wave abnormality now present Sinus arrhythmia no longer present Electronically Signed On 03-28-2022 19:32:34 [employer]WAY CAR REPA[employer]ER by Srikanth Alvarenga M.D. [id number]
== END 2022-03-28 15:21 | disposition home or self-care, planned readmission (81) ==
PROVIDERS: Emergency Provider General Practice; PCP Family Medicine
DX: S20.212A Contusion of left front wall of thorax, initial encounter (principal); Z79.82 Long term (current) use of aspirin; Z79.4 Long term (current) use of insulin; E78.5 Hyperlipidemia, unspecified; I10 Essential (primary) hypertension; Z87.891 Personal history of nicotine dependence; W18.39XA Other fall on same level, initial encounter
CPT/HCPCS: 71250; 74150; 80048; 85025; 85610; 85730; 93005; 99285

== ENCOUNTER → 2022-05-08 11:00 | Outpatient (BNVA) | payer MEDICARE, MEDICAID, SELFPAY | PROVIDERS: PCP Family Medicine | DX: R30.0 Dysuria (principal) | CPT/HCPCS: 81003; 87077; 87086; 87184 ==

== ENCOUNTER → 2022-05-21 15:44 | Outpatient (BNVA) | payer MEDICARE, MEDICAID, SELFPAY | PROVIDERS: PCP Family Medicine; Visit Provider Nurse Practitioner Family | DX: N39.0 Urinary tract infection, site not specified (principal); R31.9 Hematuria, unspecified | CPT/HCPCS: 81003 ==

== ENCOUNTER 2022-06-12 06:00 | Outpatient (RCR) | payer MEDICARE, MEDICAID, SELFPAY | END 2022-07-08 23:59 | disposition home or self-care (01) | LOC: GPT 06:00 | PROVIDERS: Visit Provider Nurse Practitioner Family | DX: R29.6 Repeated falls (principal); R53.1 Weakness | CPT/HCPCS: 97110; 97112; 97161; 97530 ==

== ENCOUNTER 2022-06-25 13:00 | Outpatient (CLI) | payer MEDICARE, MEDICAID, SELFPAY ==
--- NOTE | 2022-06-25 13:26 | MM_ITS ---
WS: [id number] Bilateral screening 3D tomosynthesis digital mammogram, 06/25/2022 Clinical Data: SCREENING Comparison: 09/04/2013. Findings: The breast parenchymal pattern shows fibroglandular tissue. No spiculated masses or clustered calcifi cations are seen. There are no secondary signs of carcinoma. MM/[place] [id number] Impression: 1. Negative bilateral mammogram unchanged. 2. Recommend annual screening mammograms. BIRADS: 1-Negative FOLLOW UP: 1 Year Follow-up The CAD electric organ checker was used.
--- NOTE | 2022-06-25 14:00 | XR_ITS ---
WS: [id number] DEXA (DUAL ENERGY X-RAY ABSORPTIOMETRY) Bone mineral density was performed using a Leiyoo machine. HISTORY: Z78.0 - Asymptomatic menopausal state COMPARISON: None available. Lumbar spine BMD (L1-L4): 1.087 g/cm2 T score: -0.8 Z score: -0.1 Total hip BMD: Left: 0.771 g/cm2. T score: -1.9 Z score: -1.0 Right: 0.824 g/cm2. T score: -1.5 Z score: -0.6 10 year probability of a major osteoporotic fracture is 13.8%. XR/XR DEXA axial skeleton* 35048 IMPRESSION: OSTEOPENIA based upon the WHO classification for females.
== END 2022-06-25 13:01 | disposition home or self-care (01) ==
PROVIDERS: PCP Family Medicine; Visit Provider Nurse Practitioner Family
DX: Z12.31 Encounter for screening mammogram for malignant neoplasm of breast (principal); Z13.820 Encounter for screening for osteoporosis; Z78.0 Asymptomatic menopausal state; M85.89 Other specified disorders of bone density and structure, multiple sites
CPT/HCPCS: 77063; 77067; 77080

== ENCOUNTER 2022-07-09 06:00 | Outpatient (RCR) | payer MEDICARE, MEDICAID, SELFPAY | END 2022-08-07 23:59 | disposition home or self-care (01) | LOC: GPT 06:00 | PROVIDERS: PCP Family Medicine; Visit Provider Nurse Practitioner Family | DX: R29.6 Repeated falls (principal); R53.1 Weakness | CPT/HCPCS: 97110; 97112; 97140; 97530 ==

== ENCOUNTER → 2022-07-16 14:36 | Outpatient (BNVA) | payer MEDICARE, MEDICAID, SELFPAY | PROVIDERS: PCP Family Medicine; Visit Provider Nurse Practitioner Family | DX: N23 Unspecified renal colic (principal); N39.0 Urinary tract infection, site not specified; R31.9 Hematuria, unspecified | CPT/HCPCS: 81000 ==

== ENCOUNTER 2022-08-08 06:00 | Outpatient (RCR) | payer MEDICARE, MEDICAID, SELFPAY | END 2022-09-07 23:59 | disposition home or self-care (01) | LOC: GPT 06:00 | PROVIDERS: PCP Family Medicine; Visit Provider Nurse Practitioner Family | DX: M62.81 Muscle weakness (generalized) (principal); R29.6 Repeated falls | CPT/HCPCS: 97110; 97112; 97164; 97530 ==

== ENCOUNTER → 2022-08-28 14:14 | Outpatient (BNVA) | payer MEDICARE, MEDICAID, SELFPAY | PROVIDERS: PCP Family Medicine; Visit Provider Nurse Practitioner Family | DX: R30.0 Dysuria (principal) | CPT/HCPCS: 81000; 81003 ==

== ENCOUNTER → 2022-09-02 15:13 | Outpatient (BNVA) | payer MEDICARE, MEDICAID, SELFPAY | PROVIDERS: PCP Family Medicine; Visit Provider Internal Medicine Cardiovascular Disease | DX: R06.02 Shortness of breath (principal); E78.5 Hyperlipidemia, unspecified; I10 Essential (primary) hypertension; E66.9 Obesity, unspecified; E11.9 Type 2 diabetes mellitus without complications; K21.9 Gastro-esophageal reflux disease without esophagitis; M54.2 Cervicalgia; G89.29 Other chronic pain; Z68.41 Body mass index [BMI] 40.0-44.9, adult; Z87.891 Personal history of nicotine dependence; Z79.4 Long term (current) use of insulin | CPT/HCPCS: 99214 ==

== ENCOUNTER 2022-09-16 10:00 | Outpatient (CLI) | payer MEDICARE, MEDICAID, SELFPAY ==
[2022-09-16 10:37] VITALS: BMI 41.0
--- NOTE | 2022-09-16 10:50 | ECG_ITS ---
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 Interpretive Statements NAME OF STUDY: LEXISCAN SESTAMIBI STRESS TEST INDICATION: Shortness of breath on exertion PROCEDURE: At the baseline, the blood pressure was 156/87 mm Hg with a heart rate of 58 bpm. The electrocardiogram showed sinus bradycardia, normal axis with no significant ST-T wave changes. ??? The Lexiscan was infused over a period of 20 seconds. A total of 0.4 milligrams of Lexiscan was infused. The stress phase was continued for a total of 5 minutes. Heart rate at the end of the stress phase was 73 bpm with a blood pressure of 208/98 mm Hg. The EKG at the peak infusion revealed no significant ST-T wave changes. ??? Sestamibi was injected 20 seconds after the Lexiscan infusion. ??? Blood pressure at the end of the recovery phase was 187/95 mm Hg with a heart rate of 66 beats per minute. ??? CONCLUSION: 1. No significant EKG changes with the LexiScan infusion. 2. No LexiScan induced chest pain or cardiac arrhythmia. 3. Normal blood pressure and heart rate response. 4. Sestamibi/sestamibi perfusion scan pending; see separate report. Electronically Signed On 09-20-2022 8:57:02 CDT by Priscilla Smart M.D. [id number]
--- NOTE | 2022-09-16 10:51 | NMCV_ITS ---
NM jonn perf SPECT r/s* [id number] Shana Valle Age: 72 Gender: F : 1950 Exam Date: 09/16/2022 11:41 Ordering Phys: Priscilla Smart MD ([email or web address]) Technologist: HARRIET Malhotra Exam Location: [facility] Indications: SHORTNESS OF BREATH STRESS TEST Please see separate stress test report in [facility] for full findings IMAGE PROTOCOL Rest/Stress 1 Lexiscan Day Radiopharmaceutical Dose (mCi) Administration Site Administered by Rest: Tc-99m 10.7 IV HARRIET Richard Sestamibi Stress:Tc-99m 33.0 IV HARRIET Richard Sestamibi Rest: 16-Sep-2022 60 Discovery 630 Stress: 16-Sep-2022 30 Discovery 630 0.4mg Lexiscan. Supine position only as patient was unable to lay prone. SPECT RESULTS Technical Quality: Excellent Raw Data Analysis: Normal Image Corrections: No attenuation or motion correction applied Summed Stress Score: 1 Summed Rest Score: 1 Summed Difference Score: 1 PERFUSION FINDINGS SPECT images demonstrate homogeneous tracer distribution throughout the myocardium. FUNCTIONAL RESULTS (calculated via Gated SPECT) Stress Image LV EF (%): 78 Stress EDV (mL):72 TID: 1 Stress ESV (mL):16 FUNCTIONAL FINDINGS: The left ventricle is normal in size. Transient Ischemia Dilatation of 1. The left ventricular ejection fraction is normal with a value of 78%. There is normal left ventricular wall thickening. Normal End-diastolic and end-systolic volumes. IMPRESSIONS 1. Myocardial perfusion imaging is normal. 2. Overall left ventricular systolic function is normal without regional wall motion abnormalities, LVEF=78%. 3. EKG portion of the study will be reported separately. 4. Scan indicates low risk for cardiac events. Priscilla Smart MD (Electronically Signed) Final Date: 18 September 2022 14:27 S
[2022-09-16] MEDS: regadenoson 0.4 Mg/5 ml Syringe IVP (12:30)
[2022-09-16 12:43] VITALS: BP 186/95; PULSE 82
== END 2022-09-16 10:01 | disposition home or self-care (01) ==
LOC: CDL 10:02
PROVIDERS: PCP Family Medicine; Visit Provider Internal Medicine Cardiovascular Disease
DX: R06.02 Shortness of breath (principal)
CPT/HCPCS: 36415; 78452; 93017; 96374; A9500; J2785

== ENCOUNTER → 2022-10-29 13:16 | Outpatient (BNVA) | payer MEDICARE, MEDICAID, SELFPAY | PROVIDERS: PCP Family Medicine; Visit Provider Nurse Practitioner Family | DX: R30.0 Dysuria (principal); I10 Essential (primary) hypertension; E11.9 Type 2 diabetes mellitus without complications; N39.0 Urinary tract infection, site not specified; R31.9 Hematuria, unspecified; Z79.899 Other long term (current) drug therapy | CPT/HCPCS: 80053; 80061; 81003; 83036; 85025 ==

== ENCOUNTER → 2022-12-09 14:25 | Outpatient (BNVA) | payer MEDICARE, MEDICAID, SELFPAY | PROVIDERS: PCP Family Medicine; Visit Provider Nurse Practitioner Family | DX: R30.0 Dysuria (principal) | CPT/HCPCS: 81000; 81003; 87077; 87086; 87184 ==

== ENCOUNTER 2022-12-24 06:00 | Outpatient (RCR) | payer MEDICARE, MEDICAID, SELFPAY | END 2023-01-07 23:59 | disposition home or self-care (01) | LOC: GPT 06:00 | PROVIDERS: Visit Provider Nurse Practitioner Family | DX: M62.81 Muscle weakness (generalized) (principal); R26.2 Difficulty in walking, not elsewhere classified | CPT/HCPCS: 97110; 97112; 97162 ==

== ENCOUNTER 2023-01-08 06:00 | Outpatient (RCR) | payer MEDICARE, MEDICAID, SELFPAY | END 2023-02-07 23:59 | disposition home or self-care (01) | LOC: GPT 06:00 | PROVIDERS: PCP Nurse Practitioner Family; Visit Provider Nurse Practitioner Family | DX: R53.1 Weakness (principal) | CPT/HCPCS: 97110; 97112; 97530 ==

== ENCOUNTER 2023-02-08 06:00 | Outpatient (RCR) | payer MEDICARE, MEDICAID, SELFPAY | END 2023-03-10 23:59 | disposition home or self-care (01) | LOC: GPT 06:00 | PROVIDERS: PCP Nurse Practitioner Family; Visit Provider Nurse Practitioner Family | DX: R53.1 Weakness (principal) | CPT/HCPCS: 97110 ==

== ENCOUNTER → 2023-02-09 14:55 | Outpatient (BNVA) | payer MEDICARE, MEDICAID, SELFPAY | PROVIDERS: PCP Nurse Practitioner Family; Visit Provider Nurse Practitioner Family | DX: R30.9 Painful micturition, unspecified (principal) | CPT/HCPCS: 81003; 87077; 87086; 87184 ==

== ENCOUNTER → 2023-05-13 14:24 | Outpatient (BNVA) | payer MEDICARE, MEDICAID, SELFPAY | PROVIDERS: PCP Nurse Practitioner Family; Visit Provider Nurse Practitioner Family | DX: E11.9 Type 2 diabetes mellitus without complications (principal); R35.0 Frequency of micturition | CPT/HCPCS: 81000; 83036 ==

== ENCOUNTER 2023-05-31 13:13 | Emergency (ER) | payer MEDICARE, MEDICAID, SELFPAY ==
[2023-05-31 13:13] VITALS: BP 92/59; PULSE 54; RESP 17; TEMP 36.6; O2SAT 95; BMI 44.4
--- NOTE | 2023-05-31 13:17 | XRR_ITS ---
PROCEDURE INFORMATION: Exam: XR Chest Exam date and time: 05/31/2023 1:22 PM Age: 73 years old Clinical indication: Shortness of breath TECHNIQUE: Imaging protocol: Radiologic exam of the chest. Views: 1 view. COMPARISON: CT chest abd [id number] 03/28/2022 1:44 PM FINDINGS: Lungs: Unchanged slightly low lung volumes. Otherwise, unremarkable. Pleural spaces: Unremarkable. No pleural effusion. No pneumothorax. Heart/Mediastinum: Unremarkable. No cardiomegaly. Bones/joints: Unchanged mild scoliosis with mild and moderate multilevel spondylosis. Unchanged surgical hardware attached to the lower cervical spine. XR/XR chest 1V [id number] IMPRESSION: 1. No acute findings. 2. Additional details as above.
--- NOTE | 2023-05-31 13:17 | CT_ITS ---
WS: [id number] CT HEAD NONCONTRAST HISTORY: slurred speech TECHNIQUE: Contiguous axial imaging performed through the brain in 2.5 mm imaging. Bone and soft tiss ue windows. Sagittal and coronal reformats reviewed. All CT scans at [facility] use at least one of these dose optimization techniques: automated exposure control; mA and/or kV adjustment per pa tient size (includes targeted exams where dose is matched to clinical indication); or iterative recon struction. DLP: 1022.94 mGy.cm COMPARISON: 02/17/2022 No acute intracranial hemorrhage, midline shift or mass effect. Moderate atrophy and small vessel ischemic disease. No infarct. Perivascular space versus lacunar inf arct inferior RIGHT basal ganglia. Ventricles: Normal size with no hydrocephalus. Paranasal sinuses: As visualized are clear. Mastoid air cells: Well pneumatized. Calvarium and scalp: Skull is intact with no soft tissue edema or swelling. IMPRESSION: 1. Stable noncontrast head CT. 2. Moderate atrophy and small vessel ischemic disease.
[2023-05-31 13:27] LABS: Glucose Point of Care 114 mg/dL (70-110)
[2023-05-31 13:28] LABS: Basophils % 0.4 %; Eosinophils # 0.3 10^3/uL (0.0-0.8); Eosinophils % 4.7 %; Hematocrit 39.8 % (36-47); Lymphocytes # 1.6 10^3/uL (0.8-4.8); Lymphocytes % 22.4 %; Mean Corpuscular HGB Conc 30.9 g/dL (30-55); Mean Corpuscular Volume 97.1 fl (85-98); Mean Platelet Volume 10.7 fL (7.4-10.4); Monocytes # 0.6 10^3/uL (0.2-0.9); Monocytes % 8.6 %; Neutrophils # 4.59 10^3/uL (1.8-7.7); Neutrophils % 63.6 %; Nucleated Red Blood Cells % 0 %; Platelet Count 257 10^3/cmm (157-399); Red Cell Distribution Width 14.6 % (12.1-15.1); White Blood Count 7.22 10^3/uL (3.29-11.43)
--- NOTE | 2023-05-31 13:37 | ED_ITS ---
HPI - Weakness 2 General: Chief complaint: Weakness Stated complaint: Weakness Time Seen by Provider: 05/31/23 13:17 History of Present Illness: 73-year-old female with a history of hyp ertension atrial fibrillation hypothyroidism depression and hyperlipidemia and diabetes who presents to the emergency room by ambulance with generalized weakness and hyperglycemia. She reported her sugars have been running in the 400s. At home this morning it was over 400, however when EMS got there and checked her blood sugar was 150. She says she has had some generalized weakness but nothing focal. However she does say I think I have had a stroke because she says her speech is slurred. She does not have her teeth and at this time and that makes it a bit difficult to distinguish but she says her speech is different than normal. No facial droop. No extremity weakness. No known fevers. She says she stopped taking her daytime insulin because her A1c had improved. No altered mental status. No chest pain. No shortness of breath. No nausea or vomiting. No abdominal pain. Review of Systems 2 Narrative: Constitutional symptoms: Negative except as documented in HPI. Skin symptoms: Negative except as documented in HPI. Eye symptoms: Negative except as documented in HPI. ENMT symptoms: Negative except as documented in HPI. Respiratory symptoms: Negative except as documented in HPI. Cardiovascular symptoms: Negative except as documented in HPI. Gastrointestinal symptoms: Negative except as documented in HPI. Genitourinary symptoms: Negative except as documented in HPI. Musculoskeletal symptoms: Negative except as documented in HPI. Neurologic symptoms: Negative except as documented in HPI. Psychiatric symptoms: Negative except as documented in HPI. Endocrine symptoms: Negative except as documented in HPI. PFSH ED 2 PFSH: Medical History Blackout spell Hypertension, benign Sleep apnea Obesity Afib Hypothyroid GERD (gastroesophageal reflux disease) Depression Hyperlipidemia Social History Smoking and tobacco/nicotine status: former use of tobacco/nicotine Quit status (tobacco/nicotine): has quit using Year quit tobacco: 2001 Alcohol intake: never Physical Exam 2 Narrative: EXAM NARRATIVE: General: Alert, no acute distress. Skin: Warm, dry. Head: Normocephalic, atraumatic. Neck: Supple, trachea midline. Eye: Extraocular movements are intact. Ears, nose, mouth and throat: Dry oral mucosa Cardiovascular: Regular, Normal peripheral perfusion. Respiratory: Lungs are clear to auscultation, respirations are non-labored, breath sounds are equal, Symmetrical chest wall expansion. Gastrointestinal: Soft, Nontender, Non distended, Normal bowel sounds. Musculoskeletal: Normal ROM, no deformity. Neurological: Alert and oriented, No focal neurological deficit observed. Her speech does seem a bit slurred. Psychiatric: Cooperative, appropriate mood & affect. Course 2 Vital Signs: Vital signs: Vital Signs Temperature 97.9 F 05/31/23 13:13 Pulse Rate 57 L 05/31/23 15:10 Respiratory Rate 17 05/31/23 13:13 Blood Pressure 115/58 05/31/23 15:10 Pulse Oximetry 97 05/31/23 15:10 Oxygen Delivery Me thod Room Air 05/31/23 13:52 MDM - Weakness Medical Decision Making Medical decision making: Differential diagnosis including but not limited to and based on the above HPI, review of systems and physical exam: for patient with complaint of hyperglycemia: Medical non-compliance. Concern for DKA and dehydration. Concern for underlying infection that might result in hyperglycemia. Orders placed to evaluate differential diagnosis based on the above differential, HPI and physical exam Ketones, ABG, CBC, BMP, Urinalysis ordered to evaluate, rule in and rule out above pathologies. Lab Review: Laboratory results were reviewed and interpreted by myself the emergency room physician. Lab work is fairly unremarkable. White count is 7. Hemoglobin is 12. BUN and creatinine are 16 and 0.7. Blood glucose is 118 on lab work. She does have a mild early urinary tract infection. With her being a diabetic I am treating this also with her having symptoms. EKG: Time 1340 rate 55. Sinus bradycardia, No ST-T changes, no ectopy, normal PA & QRS intervals, This was reviewed and interpreted by myself the ER physician at 1345 CT head: Stable atrophy. No acute intracranial process. no intracranial hemorrhage, no evidence of infarct. no evidence of acute fracture.This was reviewed and interpreted by myself the ER physician. Chest x-ray: No acute process. No infiltrate. No pneumothorax. Stable mild cardiomegaly. This was reviewed and interpreted by myself the ER physician. Hardware present in the cervical spine. I reviewed the patient's medical record. Reexamination: Patient is sugar has remained normal. Definitely not in the 400s. Suspect that maybe her home monitor was wrong. Because EMS had a lower sugar and we did as well. No increased work of breathing. No altered mental status. She has had some generalized weakness and this is likely due to urinary tract infection. No altered mental status. No increased work of breathing. Lab Data 05/31/23 13:19 05/31/23 13:19 Radiology Impressions Chest X-Ray 05/31/23 13:17 IMPRESSION: 1. No acute findings. 2. Additional details as above. Laboratory Results WBC 7.22 10^3/uL (3.29-11.43) 05/31/23 13:19 RBC 4.10 10^6/uL (3.85-5.65) 05/31/23 13:19 Hgb 12.30 g/dL (11.27-16.99) 05/31/23 13:19 Hct 39.8 % (36-47) 05/31/23 13:19 MCV 97.1 fl (85-98) 05/31/23 13:19 MCH 30.0 pg (27-33) 05/31/23 13:19 MCHC 30.9 g/dL (30-55) 05/31/23 13:19 RDW 14.6 % (12.1-15.1) 05/31/23 13:19 Plt Count 257 10^3/cmm (157-399) 05/31/23 13:19 MPV 10.7 fL (7.4-10.4) H 05/31/23 13:19 Neut % (Auto) 63.6 % 05/31/23 13:19 Lymph % (Auto) 22.4 % 05/31/23 13:19 [place] % (Auto) 8.6 % 05/31/23 13:19 Eos % (Auto) 4.7 % 05/31/23 13:19 Baso % (Auto) 0.4 % 05/31/23 13:19 Neut # (Auto) 4.59 10^3/uL (1.8-7.7) 05/31/23 13:19 Lymph # (Auto) 1.6 10^3/uL (0.8-4.8) 05/31/23 13:19 [place] # (Auto) 0.6 10^3/uL (0.2-0.9) 05/31/23 13:19 Eos # (Auto) 0.3 10^3/uL (0.0-0.8) 05/31/23 13:19 Baso # (Auto) 0.0 10^3/uL (0.0-0.1) 05/31/23 13:19 Nucleated RBC % (auto) 0 % 05/31/23 13:19 Nucleated RBCs # 0.0 /100WBC 05/31/23 13:19 Specimen Type Arterial 05/31/23 13:43 Sample Site Radial, right 05/31/23 13:43 ABG pH 7.42 (7.35-7.45) 05/31/23 13:43 ABG pCO2 41.4 mmHg (35-45) 05/31/23 13:43 ABG pO2 75.5 mmHg (80.0-100.0) L 05/31/23 13:43 ABG PO2/FiO2 Ratio 0 05/31/23 13:43 ABG HCO3 26.7 mmol/L (22-26) H 05/31/23 13:43 ABG O2 Saturation 95.4 05/31/23 13:43 ABG Base Excess 1.9 mmol/L (-2.0-2.0) 05/31/23 13:43 Surya Test Pos 05/31/23 13:43 A-a O2 Gradient 3.1 mmHg (5-10) L 05/31/23 13:43 Hematocrit 37.8 % (37-47) 05/31/23 13:43 Hgb O2 Saturation 94.4 % (95-100) L 05/31/23 13:43 Carboxyhemoglobin 0.6 %THgb (0.4-20.1) 05/31/23 13:43 Methemoglobin 0.4 % (0.4-1.5) 05/31/23 13:43 Total Hemoglobin 12.3 g/dL (12-16) 05/31/23 13:43 Sodium 141.0 mmol/L (131-143) 05/31/23 13:43 Potassium 4.4 mmol/L (3.5-5.0) 05/31/23 13:43 Glucose 107.0 mg/dL (70-115) 05/31/23 13:43 Ionized Calcium 1.2 mmol/L (1.1-1.4) 05/31/23 13:43 O2 Delivery Device Room air 05/31/23 13:43 FiO2 21.0 % 05/31/23 13:43 [employer] Ii Assembler ID glc 05/31/23 13:43 Sodium 137 mmol/L (136-145) 05/31/23 13:19 Potassium 4.6 mmol/L (3.5-5.1) 05/31/23 13:19 Chloride 103 mmol/L (98-107) 05/31/23 13:19 Carbon Dioxide 26 mmol/L (22-29) 05/31/23 13:19 Anion Gap 12.6 (5-19) 05/31/23 13:19 BUN 16 mg/dL (8-23) 05/31/23 13:19 Creatinine 0.7 mg/dL (0.5-0.9) 05/31/23 13:19 GFR Calculation Not Reportable 05/31/23 13:19 Glucose 118 mg/dL (65-115) H 05/31/23 13:19 POC Glucose 114 mg/dL (70-110) H 05/31/23 13:25 Calculated Osmolality 286 mOsm/kg (285-295) 05/31/23 13:19 Lactic Acid 1.4 mmol/L (0.5-2.2) 05/31/23 13:19 Calcium 8.6 mg/dL (8.5-10.5) 05/31/23 13:19 Total Bilirubin 0.3 mg/dL (0.15-1.2) 05/31/23 13:19 AST 14 U/L (0-32) 05/31/23 13:19 ALT 9 U/L (0-33) 05/31/23 13:19 Alkaline Phosphatase 92 U/L (35-105) 05/31/23 13:19 Troponin T Baseline 14 ng/L (0-10) H 05/31/23 13:19 C-Reactive Protein 3.1 mg/L (0.0-4.9) 05/31/23 13:19 Total Protein 6.8 g/dL (6.6-8.7) 05/31/23 13:19 Albumin 4.0 g/dL (3.5-5.2) 05/31/23 13:19 Globulin 2.8 g/dL (1.3-4.6) 05/31/23 13:19 Urine Color Yellow (Yellow) 05/31/23 14:08 Urine Appearance Clear (CLEAR) 05/31/23 14:08 Urine pH 8 (5-7) H 05/31/23 14:08 Ur Specific [place] 1.005 (1.005-1.030) 05/31/23 14:08 Urine Protein Neg (Negative) 05/31/23 14:08 Urine Glucose (UA) Norm (Normal) 05/31/23 14:08 Urine Ketones Negative (Negative) 05/31/23 14:08 Urine Blood 2+ (Negative) H 05/31/23 14:08 Urine Nitrate Negative (Negative) 05/31/23 14:08 Urine Bilirubin Neg (Negative) 05/31/23 14:08 Prot Sulfosalicylic Acd Negative (Negative) 05/31/23 14:08 Urine Urobilinogen Neg mg/dL (Negative) 05/31/23 14:08 Ur Leukocyte Esterase Trace (Negative) H 05/31/23 14:08 Urine RBC 0-4 /hpf (0-2) H 05/31/23 14:08 Urine WBC 0-4 /hpf (0-5) H 05/31/23 14:08 Ur Squamous Epith Cells Rare /hpf (0-5) 05/31/23 14:08 Amorphous Sediment Not Reportable 05/31/23 14:08 Urine Bacteria 1+ /hpf (NONE) H 05/31/23 14:08 All radiology interpretation(s) finalized by discharge Other Data Assessment and plan: Urinary tract infection Dehydration - Patient will need to calibrate her blood glucose meter or obtain a new one. I think likely this was an error - normal saline bolus and IV Rocephin. - Discharged home - Discussed findings and plan with patient. Answered any questions. - All laboratory values were reviewed and interpreted personally by myself, the ER physician - All imaging was reviewed and interpreted personally by myself, the ER physician. - Evaluation and treatment of this problem were appropriate in the emergency setting Discharge Plan Discharge Patient Disposition: Home Clinical Impression: Dehydration, Urinary tract infection Condition: Stable Prescriptions: New cefdinir 300 mg capsule 300 mg PO BID 10 Days Qty: 20 0RF No Action albuterol sulfate [Ventolin HFA] 90 mcg/actuation HFA aerosol inhaler 2 puff INHALATION Q6H PRN (Reason: Shortness Of Breath) omega-3 fatty acids 1,000 mg capsule 1,000 mg PO DAILY All Day Allergy (cetirizine) 10 mg capsule 10 mg PO DAILY naproxen sodium [Aleve] 220 mg capsule 440 mg PO BID atorvastatin 20 mg tablet 20 mg PO DAILY Symbicort 160-4.5 mcg/actuation HFA aerosol inhaler 2 puff INHALATION BID PRN melatonin 10 mg capsule 20 mg PO .HS aspirin 81 mg tablet,delayed release (DR/EC) 81 mg PO DAILY Qty: 90 0RF nystatin-triamcinolone 100,000-0.1 unit/gram-% ointment 1 applic topical TID Qty: 60 1RF Lantus Solostar U-100 Insulin 100 unit/mL (3 mL) insulin pen 20 unit SUBCUT BEDTIME Qty: 15 5RF nystatin 100,000 unit/gram powder 1 applic topical QID Qty: 60 4RF amoxicillin-pot clavulanate 500-125 mg tablet 1 tab PO Q12H 7 Days Qty: 14 0RF phenazopyridine [Pyridium] 200 mg tablet 200 mg PO TID PRN (Reason: pain) Qty: 6 0RF (DME) pen needle, diabetic [1st Tier Unifine Pentips] 32 gauge x 5/32 needle See Rx Instructions .ROUTE .MEDSUPPLY Qty: 300 3RF Rx Instructions: As directed three times a day metoprolol tartrate 50 mg tablet 50 mg PO BID Qty: 180 3RF losartan 25 mg tablet 25 mg PO DAILY Qty: 90 3RF pioglitazone [Actos] 45 mg tablet 45 mg PO DAILY Qty: 90 3RF escitalopram oxalate 20 mg tablet 20 mg PO DAILY Qty: 90 3RF nystatin 100,000 unit/gram ointment 1 applic topical TID Qty: 30 2RF triamcinolone acetonide 0.5 % ointment 1 applic topical TID Qty: 15 2RF hydralazine 10 mg tablet 10 mg PO BID pantoprazole 40 mg tablet,delayed release (DR/EC) 40 mg PO BID Discharge Orders: Discharge ED (Routine); Ordered 05/31/23 Ordered By: Stephany Mon Referrals: Sanrda Greenwood, SLIVER MACHINE OPERATOR [Nurse Practitioner] - (You have been screened and evaluated and felt safe for discharge. Health conditions do change or evolve sometimes and as such it is important that you follow up with your Primary Doctor to be re checked, 3-5 days is a general good time frame for follow up. You are always welcome to return to the ED for re assessment if your symptoms are worsening or you have new concerns) Discharge Diet: Usual diet Discharge Activity: Resume usual activity Patient Instructions: Urinary Tract Infection in Older Adults (ED) Coding Level of Care Code ED Fish Pitcher for Swapna Abreu
[2023-05-31 13:47] LABS: Troponin(5th) Baseline 14 ng/L (0-10)
[2023-05-31 13:50] LABS: Lactic Sepsis W/Reflex 1.4 mmol/L (0.5-2.2)
[2023-05-31 13:51] LABS: Alanine Aminotransferase 9 U/L (0-33); Alkaline Phosphatase 92 U/L (35-105); Anion Gap 12.6 (5-19); Aspartate Amino Transferase 14 U/L (0-32); Blood Urea Nitrogen 16 mg/dL (8-23); C Reactive Protein 3.1 mg/L (0.0-4.9); Calcium 8.6 mg/dL (8.5-10.5); Carbon Dioxide 26 mmol/L (22-29); Chloride 103 mmol/L (98-107); Creatinine Clr Calc Pharmacy 97.1913; Globulin 2.8 g/dL (1.3-4.6); Glucose 118 mg/dL (65-115); Osmolality Calculated 286 mOsm/kg (285-295); Potassium 4.6 mmol/L (3.5-5.1); Sodium 137 mmol/L (136-145); Total Bilirubin 0.3 mg/dL (0.15-1.2); Total Protein 6.8 g/dL (6.6-8.7)
[2023-05-31 13:52] VITALS: BP 163/71; PULSE 57; O2SAT 96
[2023-05-31 13:55] LABS: ABG PCO2 41.4 mmHg (35-45); ABG PH Result 7.42 (7.35-7.45); Alveolar-Arterial Oxygen Gradi 3.1 mmHg (5-10); Arterial Blood Gas Hematocrit 37.8 % (37-47); Base Excess ABG 1.9 mmol/L (-2.0-2.0); Blood Gas Allen Test Pos; Blood Gas Operator Identificat glc; Blood Gas Sample Site Radial, right; Blood Gas Sample Type Arterial; Carboxyhemoglobin 0.6 %THgb (0.4-20.1); HCO3 ABG 26.7 mmol/L (22-26); HGB O2 Sat 94.4 % (95-100); Ionized Calcium Level - ABG 1.2 mmol/L (1.1-1.4); Methemoglobin 0.4 % (0.4-1.5); Oxygen Device ROOM AIR; Oxygen Saturation ABG 95.4; PO2 ABG 75.5 mmHg (80.0-100.0); PO2 FiO2 Ratio Arterial Blood 0; Potassium Level - ABG 4.4 mmol/L (3.5-5.0); Total Hemoglobin 12.3 g/dL (12-16)
[2023-05-31] MEDS: sodium chloride 0.9% 1,000 ML 999 ML IV (13:56)
[2023-05-31 14:52] LABS: Bilirubin Urine Neg (Negative); Blood Urine 2+ (Negative); Glucose Urine UA Norm (Normal); Ketones Urine Negative (Negative); Leukocyte Esterase Urine Trace (Negative); Nitrate Urine Negative (Negative); Protein Urine Neg (Negative); Specific Gravity, Urine 1.005 (1.005-1.030); Sulfosalicylic Acid Urine Negative (Negative); Urine Appearance Clear (CLEAR); Urine Color Yellow (Yellow); Urobilinogen Urine Neg (Negative); pH Urine 8 (5-7)
[2023-05-31 14:53] LABS: Add Urine Culture? No; Bacteria Urine 1+ /hpf; RBC Urine 0-4 /hpf (0-2); Squamous Epithelial Cell Urine RARE /hpf (0-5); WBC Urine 0-4 /hpf (0-5)
--- NOTE | 2023-05-31 15:03 | ECG_ITS ---
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 Measurements Intervals [place] Rate: 56 P: 56 [place]: 171 QRS: 47 QRSD: 81 T: 51 QT: 467 QTc: 454 Interpretive Statements SINUS BRADYCARDIA Compared to ECG 05/31/2023 13:40:55 No significant changes Electronically Signed On 05-31-2023 15:08:26 CDT by Wade Fischer M.D. [email or web address] [email or web address] [email or web address] [employer]/store/OM/[id number]
[2023-05-31 15:10] VITALS: BP 115/58; PULSE 57; O2SAT 97
--- NOTE | 2023-05-31 15:18 | ECG_ITS ---
[facility] Test Date: 2023-05-31 Pat Name: Shana Valle Department: Room: Gender: Female Tape Recorder Repairer: : 1950 Requested By: Stephany Harris Order Number: [id number] Isai MD: Wade Fischer M.D. Measurements Intervals [place] Rate: 55 P: 67 [place]: 172 QRS: 55 QRSD: 90 T: 62 QT: 443 QTc: 425 Interpretive Statements SINUS BRADYCARDIA Compared to ECG 03/28/2022 14:55:37 Sinus rhythm no longer present T-wave abnormality no longer present Electronically Signed On 05-31-2023 15:07:56 CDT by Wade Fischer M.D. [email or web address] columbus [email or web address]/[id number]
[2023-05-31] MEDS: cefTRIAXone 1,000 MG in sodium chloride 0.9% (plus) 50 ML 100 MG IV (15:50)
[2023-05-31 16:08] LABS: Troponin 5 1HR 11.97 ng/L (0-10)
[2023-05-31 16:09] LABS: Troponin 5 1HR Delta -2.03 ABS# (0-10)
[2023-05-31 16:27] VITALS: BP 115/58; PULSE 57; RESP 17; TEMP 36.6; O2SAT 97
== END 2023-05-31 16:29 | disposition home or self-care (01) ==
PROVIDERS: Emergency Provider Emergency Medicine; PCP Family Medicine
DX: N39.0 Urinary tract infection, site not specified (principal); E86.0 Dehydration; Z79.82 Long term (current) use of aspirin; Z79.4 Long term (current) use of insulin; I10 Essential (primary) hypertension; E78.5 Hyperlipidemia, unspecified; Z87.891 Personal history of nicotine dependence
CPT/HCPCS: 36415; 36416; 36600; 70450; 71045; 80051; 80053; 81001; 82330; 82805; 82962; 83605; 84484; 85025; 86140; 93005; 96361; 96374; 99285; J0696; J7030

== ENCOUNTER → 2023-06-10 14:33 | Outpatient (BNVA) | payer MEDICARE, MEDICAID, SELFPAY | PROVIDERS: PCP Family Medicine; Visit Provider Nurse Practitioner Family | DX: R30.9 Painful micturition, unspecified (principal) | CPT/HCPCS: 81000 ==